=== PATIENT | male | born 1935 | race Caucasian/White ===

== ENCOUNTER 2019-11-07 16:15 | Emergency (ER) | payer OTHER, SELFPAY ==
[2019-11-07 16:31] VITALS: BP 154/79; PULSE 99; RESP 16; TEMP 37.2; O2SAT 98
--- NOTE | 2019-11-07 16:33 | ED.SKABFB ---
HPI - Skin/Abscess/Foreign Bdy General Chief complaint: Skin/Abscess/Foreign Body Stated complaint: right 2nd toe wouund Time Seen by Provider: 11/07/19 16:33 Source: patient Mode of arrival: ambulatory Limitations: no limitations History of Present Illness HPI narrative: Andrea Yuan is an 84 yo male with a PMH of high cholesterol, HTN, depression, who comes here with swelling of R 2nd toe Related Data Home Medications Medication Instructions Recorded Confirmed multivitamin 1 tablet PO DAILY 06/25/19 11/07/19 cholecalciferol (vitamin D3) 25 1,000 unit PO DAILY 06/30/19 11/07/19 mcg (1,000 unit) capsule lisinopril 10 1 tablet PO DAILY 06/30/19 11/07/19 mg-hydrochlorothiazide 12.5 mg tablet aspirin 81 mg PO DAILY 11/07/19 11/07/19 atorvastatin 40 mg PO HS 11/07/19 11/07/19 finasteride [Proscar] 5 mg PO HS 11/07/19 11/07/19 Allergies Allergy/AdvReac Type Severity Reaction Status Date / Time No Known Allergies Allergy Unverified 06/25/19 09:37 Review of Systems Review of Systems: Narrative: CONSTITUTIONAL: Denies fever, chills, sweats. EYES: Denies visual changes, redness, discharge. ENT: Denies rhinorrhea, congestion, sore throat, otalgia. CARDIOVASCULAR: Denies chest pain, palpitations, edema. RESPIRATORY: Denies dyspnea, wheezing, cough GASTROINTESTINAL: Denies abdominal pain, nausea, vomiting, diarrhea. GENITOURINARY: Denies dysuria, hematuria, abnormal discharge SKIN: Denies rash or itching. Right second toe redness and swelling NEUROLOGIC: Denies numbness, or focal weakness. PSYCHIATRIC: Denies anxiety or depression. [facility] Past Medical History Medical History BPH (benign prostatic hyperplasia) CAD (coronary artery disease) Cerebrovascular disease Completed stroke Osteoarthritis, shoulder Vitamin D deficiency Surgical History Surgical History H/O hemorrhoidectomy History of appendectomy History of blepharoplasty 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 Family History Family History (Updated 11/07/19 @ 16:40 by Rosario Reynolds CNP) Other No active medical problems Social History Social History Smoking status: Never smoker Alcohol intake: current Comments At time of signature, I agree with nursing past medical, surgical, social and family history. There is no relevant family history pertinent to the presenting complaint. Exam Narrative: Exam Narrative: GENERAL: This is a well-nourished, well-developed patient, in mild distress. HEAD: normocephalic, atraumatic. EYES: PERRL. Sclera clear/white. Vision is grossly intact. EARS: External ears normal, Hearing grossly intact. NOSE: External nose normal without nasal discharge, nares without redness, no rhinorrhea. THROAT: Mucous membranes moist, NECK: Neck supple, non-tender CARDIOVASCULAR: Regular rate and rhythm without murmurs, gallops, or rubs. RESPIRATORY: Clear to auscultation. Breath sounds equal bilaterally. No wheezes, rales, or rhonchi. GASTROINTESTINAL: Abdomen soft, non-tender, SKIN: warm, intact with no suspicious lesions or rash, good texture and turgor.R second toe erythema, no pain with movement but soft tissue is edematous NEURO: awake, alert, and oriented to person, place and time. There were no obvious focal neurologic abnormalities. Steady gait EXTREMITIES: Normal range of motion. BACK: Nontender without deformity Course Course Emergency Course: started on keflex- follow up with pcp Vital Signs Vital signs: Vital Signs Temperature 99.0 F 11/07/19 16:31 Pulse Rate 99 11/07/19 16:31 Respiratory Rate 16 11/07/19 16:31 Blood Pressure 154/79 H 11/07/19 16:31 Pulse Oximetry 98 11/07/19 16:31 Temperature 99.0 F 11/07/19 16:31 Pulse Rate 99
== END 2019-11-07 16:58 | disposition home or self-care (01) ==
PROVIDERS: Emergency Provider Nurse Practitioner; PCP Internal Medicine
DX: M79.674 Pain in right toe(s) (principal); N40.0 Benign prostatic hyperplasia without lower urinary tract symptoms; I25.10 Atherosclerotic heart disease of native coronary artery without angina pectoris; Z86.73 Personal history of transient ischemic attack (TIA), and cerebral infarction without residual deficits; I10 Essential (primary) hypertension; Z85.820 Personal history of malignant melanoma of skin
CPT/HCPCS: 99213; G0463

== ENCOUNTER 2019-12-28 07:57 | Outpatient (CLI) | payer OTHER, SELFPAY ==
[2019-12-28 08:54] LABS: Alanine Aminotransferase 58 U/L (4-50); Albumin Level 4.3 g/dL (3.5-5.1); Alkaline Phosphatase 110 U/L (38-126); Aspartate Amino Transferase 60 U/L (17-59); Bilirubin,Total 0.8 mg/dL (0.2-1.3); Blood Urea Nitrogen 17 mg/dL (9-20); Calcium 9.2 mg/dL (8.4-10.2); Carbon Dioxide 30 mmol/L (22-30); Chloride 101 mmol/L (98-107); Cholesterol 125 mg/dL (0-200); Estimated Glomerular Filt Rate > 60; Glucose 102 mg/dL (75-110); HDL Direct 35 mg/dL; Potassium 4.2 mmol/L (3.4-5.0); Sodium 137 mmol/L (137-145); Triglycerides 128 mg/dL (<150)
[2019-12-28 09:07] LABS: LDL Cholesterol Direct 69 mg/dL
== END 2019-12-28 07:58 | disposition home or self-care (01) ==
PROVIDERS: PCP Internal Medicine; Visit Provider Nurse Practitioner
DX: E78.5 Hyperlipidemia, unspecified (principal); I10 Essential (primary) hypertension
CPT/HCPCS: 36415; 80053; 80061

== ENCOUNTER 2020-06-27 08:17 | Outpatient (CLI) | payer OTHER, SELFPAY ==
[2020-06-27 08:46] LABS: Alanine Aminotransferase 70 U/L (4-50); Albumin Level 4.2 g/dL (3.5-5.1); Alkaline Phosphatase 104 U/L (38-126); Anion Gap 8 mmol/L (8-16); Aspartate Amino Transferase 68 U/L (17-59); Blood Urea Nitrogen 14 mg/dL (9-20); Calcium 9.5 mg/dL (8.4-10.2); Carbon Dioxide 34 mmol/L (22-30); Chloride 100 mmol/L (98-107); Cholesterol 133 mg/dL (0-200); Estimated Glomerular Filt Rate > 60; Glucose 102 mg/dL (75-110); HDL Direct 37 mg/dL; Potassium 4.1 mmol/L (3.4-5.0); Sodium 142 mmol/L (137-145); Triglycerides 163 mg/dL (<150)
[2020-06-27 08:56] LABS: LDL Cholesterol Direct 64 mg/dL
== END 2020-06-27 08:18 | disposition home or self-care (01) ==
PROVIDERS: PCP Internal Medicine; Visit Provider Internal Medicine
DX: E78.5 Hyperlipidemia, unspecified (principal); Z51.81 Encounter for therapeutic drug level monitoring; Z79.899 Other long term (current) drug therapy; I10 Essential (primary) hypertension
CPT/HCPCS: 36415; 80053; 80061

== ENCOUNTER 2021-01-02 08:10 | Outpatient (CLI) | payer OTHER, SELFPAY ==
[2021-01-02 08:43] LABS: Alanine Aminotransferase 67 U/L (4-50); Albumin Level 4.3 g/dL (3.5-5.1); Alkaline Phosphatase 103 U/L (38-126); Anion Gap 7 mmol/L (8-16); Aspartate Amino Transferase 73 U/L (17-59); Bilirubin,Total 0.8 mg/dL (0.2-1.3); Blood Urea Nitrogen 15 mg/dL (9-20); Calcium 9.3 mg/dL (8.4-10.2); Carbon Dioxide 29 mmol/L (22-30); Chloride 104 mmol/L (98-107); Cholesterol 140 mg/dL (0-200); Estimated Glomerular Filt Rate > 60; Glucose 96 mg/dL (75-110); HDL Direct 35 mg/dL; Sodium 140 mmol/L (137-145); Triglycerides 150 mg/dL (<150)
[2021-01-02 08:55] LABS: LDL Cholesterol Direct 69 mg/dL
[2021-01-02 09:25] LABS: Vitamin D 25 Hydroxy 36.3 ng/mL
== END 2021-01-02 08:11 | disposition home or self-care (01) ==
PROVIDERS: PCP Internal Medicine; Visit Provider Internal Medicine
DX: E55.9 Vitamin D deficiency, unspecified (principal); I10 Essential (primary) hypertension; K75.81 Nonalcoholic steatohepatitis (NASH); E78.5 Hyperlipidemia, unspecified
CPT/HCPCS: 36415; 80053; 80061; 82306

== ENCOUNTER 2021-07-17 08:16 | Outpatient (CLI) | payer OTHER, SELFPAY ==
[2021-07-17 08:44] LABS: Alanine Aminotransferase 71 U/L (4-50); Albumin Level 4.4 g/dL (3.5-5.1); Alkaline Phosphatase 90 U/L (38-126); Anion Gap 7 mmol/L (8-16); Aspartate Amino Transferase 78 U/L (17-59); Bilirubin,Total 0.9 mg/dL (0.2-1.3); Blood Urea Nitrogen 17 mg/dL (9-20); Calcium 9.3 mg/dL (8.4-10.2); Carbon Dioxide 29 mmol/L (22-30); Chloride 100 mmol/L (98-107); Cholesterol 146 mg/dL (0-200); Estimated Glomerular Filt Rate > 60; Glucose 104 mg/dL (65-110); HDL Direct 40 mg/dL; Potassium 3.9 mmol/L (3.4-5.0); Sodium 136 mmol/L (137-145); Triglycerides 123 mg/dL (<150)
[2021-07-17 08:56] LABS: LDL Cholesterol Direct 78 mg/dL
[2021-07-17 09:16] LABS: Vitamin D 25 Hydroxy 42.5 ng/mL
[2021-07-17 11:10] LABS: Prostate Specific Antigen 6.8 ng/mL (< OR = 4.0)
== END 2021-07-17 08:17 | disposition home or self-care (01) ==
PROVIDERS: PCP Internal Medicine; Referring Provider Nurse Practitioner; Visit Provider Internal Medicine
DX: Z12.5 Encounter for screening for malignant neoplasm of prostate (principal); E55.9 Vitamin D deficiency, unspecified; F32.5 Major depressive disorder, single episode, in full remission; E78.49 Other hyperlipidemia
CPT/HCPCS: 36415; 80053; 80061; 82306; 84153; 84443; G0103

== ENCOUNTER 2022-03-20 08:01 | Outpatient (CLI) | payer OTHER, SELFPAY ==
[2022-03-20 08:45] LABS: Alanine Aminotransferase 59 U/L (6-50); Albumin Level 4.4 g/dL (3.5-5.1); Alkaline Phosphatase 96 U/L (38-126); Anion Gap 11 mmol/L (8-16); Aspartate Amino Transferase 78 U/L (17-59); Bilirubin,Total 0.9 mg/dL (0.2-1.3); Blood Urea Nitrogen 18 mg/dL (9-20); Calcium 9.7 mg/dL (8.4-10.2); Carbon Dioxide 27 mmol/L (22-30); Chloride 101 mmol/L (98-107); Cholesterol 159 mg/dL (0-200); Estimated Glomerular Filt Rate > 60; Glucose 104 mg/dL (65-110); HDL Direct 34 mg/dL; Potassium 3.8 mmol/L (3.4-5.0); Sodium 139 mmol/L (137-145); Triglycerides 184 mg/dL (<150)
[2022-03-20 08:56] LABS: LDL Cholesterol Direct 81 mg/dL
[2022-03-20 09:00] LABS: Vitamin D 25 Hydroxy 45.1 ng/mL
== END 2022-03-20 08:02 | disposition home or self-care (01) ==
LOC: ANHLAB 08:03
PROVIDERS: PCP Internal Medicine; Visit Provider Internal Medicine
DX: E55.9 Vitamin D deficiency, unspecified (principal); E78.5 Hyperlipidemia, unspecified; K75.81 Nonalcoholic steatohepatitis (NASH); I10 Essential (primary) hypertension
CPT/HCPCS: 36415; 80053; 80061; 82306

== ENCOUNTER 2022-06-11 08:00 | Outpatient (CLI) | payer OTHER, SELFPAY ==
[2022-06-11 09:24] LABS: Alanine Aminotransferase 69 U/L (6-50); Albumin Level 4.5 g/dL (3.5-5.1); Alkaline Phosphatase 89 U/L (38-126); Anion Gap 10 mmol/L (8-16); Aspartate Amino Transferase 73 U/L (17-59); Bilirubin,Total 0.9 mg/dL (0.2-1.3); Blood Urea Nitrogen 18 mg/dL (9-20); Carbon Dioxide 27 mmol/L (22-30); Chloride 102 mmol/L (98-107); Cholesterol 150 mg/dL (0-200); Estimated Glomerular Filt Rate > 60; Glucose 95 mg/dL (65-110); HDL Direct 36 mg/dL; Potassium 3.9 mmol/L (3.4-5.0); Sodium 139 mmol/L (137-145); Triglycerides 150 mg/dL (<150)
[2022-06-11 09:27] LABS: Hemoglobin A1C 5.6 % (<5.7)
[2022-06-11 09:37] LABS: LDL Cholesterol Direct 76 mg/dL
== END 2022-06-11 08:01 | disposition home or self-care (01) ==
PROVIDERS: PCP Internal Medicine; Visit Provider Nurse Practitioner
DX: E11.9 Type 2 diabetes mellitus without complications (principal); E78.5 Hyperlipidemia, unspecified
CPT/HCPCS: 36415; 80053; 80061; 83036

== ENCOUNTER 2022-12-31 08:17 | Outpatient (CLI) | payer OTHER, SELFPAY ==
[2022-12-31 08:41] LABS: Hematocrit 44.6 % (42.0-52.0); Hemoglobin 14.8 g/dL (14.0-18.0); Mean Corpuscular HGB Conc 33.2 g/dl (32-36); Mean Corpuscular Hemoglobin 29.4 pg (26-34); Mean Corpuscular Volume 88.7 fl (80-100); Mean Platelet Volume 9.5 fl (7.4-10.4); Platelet Count Result 230 k/mm3 (150-375); Red Blood Count 5.03 M/mm3 (4.6-6.20); Red Cell Distribution Width 13.5 % (11.5-14.5); White Blood Count 8.1 K/mm3 (4.5-10.0)
[2022-12-31 08:55] LABS: Alanine Aminotransferase 71 U/L (6-50); Albumin Level 4.4 g/dL (3.5-5.1); Alkaline Phosphatase 89 U/L (38-126); Anion Gap 6 mmol/L (8-16); Aspartate Amino Transferase 85 U/L (17-59); Bilirubin,Total 0.8 mg/dL (0.2-1.3); Blood Urea Nitrogen 19 mg/dL (9-20); Calcium 9.2 mg/dL (8.4-10.2); Carbon Dioxide 30 mmol/L (22-30); Chloride 103 mmol/L (98-107); Estimated Glomerular Filt Rate > 60; Glucose 98 mg/dL (65-110); Potassium 4.1 mmol/L (3.4-5.0); Sodium 139 mmol/L (137-145)
== END 2022-12-31 08:18 | disposition home or self-care (01) ==
PROVIDERS: PCP Family Medicine; Visit Provider Internal Medicine
DX: F01.50 Vascular dementia, unspecified severity, without behavioral disturbance, psychotic disturbance, mood disturbance, and anxiety (principal); I10 Essential (primary) hypertension
CPT/HCPCS: 36415; 80053; 84443; 85027

== ENCOUNTER 2023-02-10 16:02 | Emergency (ER) | payer OTHER, SELFPAY ==
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
[2023-02-10 16:34] VITALS: BP 128/73; PULSE 94; RESP 18; TEMP 36.8; O2SAT 95
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
== END 2023-02-10 19:14 | disposition home or self-care (01) ==
PROVIDERS: Emergency Provider Physician Assistant; PCP Family Medicine
DX: S13.4XXA Sprain of ligaments of cervical spine, initial encounter (principal); S16.1XXA Strain of muscle, fascia and tendon at neck level, initial encounter; F01.50 Vascular dementia, unspecified severity, without behavioral disturbance, psychotic disturbance, mood disturbance, and anxiety; I25.10 Atherosclerotic heart disease of native coronary artery without angina pectoris; E78.5 Hyperlipidemia, unspecified; I10 Essential (primary) hypertension; K75.81 Nonalcoholic steatohepatitis (NASH); N40.0 Benign prostatic hyperplasia without lower urinary tract symptoms; E55.9 Vitamin D deficiency, unspecified; M19.019 Primary osteoarthritis, unspecified shoulder; G47.33 Obstructive sleep apnea (adult) (pediatric); Z86.73 Personal history of transient ischemic attack (TIA), and cerebral infarction without residual deficits; Z96.649 Presence of unspecified artificial hip joint; Z85.828 Personal history of other malignant neoplasm of skin; Z79.82 Long term (current) use of aspirin; Z87.891 Personal history of nicotine dependence; V49.50XA Passenger injured in collision with unspecified motor vehicles in traffic accident, initial encounter
CPT/HCPCS: 70450; 72125; 99284

== ENCOUNTER 2023-04-16 08:10 | Outpatient (CLI) | payer OTHER, SELFPAY ==
[2023-04-16 09:18] LABS: Hemoglobin A1C 5.4 % (<5.7)
== END 2023-04-16 08:11 | disposition home or self-care (01) ==
PROVIDERS: PCP Nurse Practitioner Family; Visit Provider Family Medicine
DX: Z79.899 Other long term (current) drug therapy (principal)
CPT/HCPCS: 36415; 83036

== ENCOUNTER 2023-04-29 16:01 | Outpatient (CLI) | payer OTHER, SELFPAY ==
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
== END 2023-04-29 16:02 | disposition home or self-care (01) ==
PROVIDERS: PCP Family Medicine; Visit Provider Family Medicine
DX: M19.012 Primary osteoarthritis, left shoulder (principal); M24.111 Other articular cartilage disorders, right shoulder
CPT/HCPCS: 73030

== ENCOUNTER 2023-06-16 10:45 | Outpatient (RCR) | payer OTHER, SELFPAY ==
--- NOTE | 2023-05-19 12:06 | OPREHPOC ---
Outpatient Therapy Plan of Care This is a Multidisciplinary Plan of Care that may contain components documented by all disciplines (PT, OT, and ST.) PT Problem 1 PT Problem #1 Knowledge Deficit PT Goal 1 Goal Independent with shoulder ROM program Target Visit 4 PT Problem 2 PT Problem #2 Pain PT Goal 1 Goal Report no increased pain with dressing to improve self care Target Visit 8 PT Problem 3 PT Problem #3 Impaired Functional Mobil PT Goal 1 Goal Demonstrate ability to reach to 145 degrees with R shoulder for functional reach in kitchen Target Visit 8 PT Goal 2 Goal Demonstrate 80 degrees of R shoulder external rotation motion to improve dressing and self care Target Visit 8 PT Problem 4 PT Problem #4 Impaired Strength PT Goal 1 Goal Improve R shoulder external rotation strength to 4 /5 to improve stability and self care Target Visit 8
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
--- NOTE | 2023-06-16 11:22 | OPREHPOC ---
Outpatient Therapy Plan of Care This is a Multidisciplinary Plan of Care that may contain components documented by all disciplines (PT, OT, and ST.) PT Problem 1 PT Problem #1 Knowledge Deficit PT Goal 1 Goal Independent with shoulder ROM program Target Visit 4 Progress Met PT Problem 2 PT Problem #2 Pain PT Goal 1 Goal Report no increased pain with dressing to improve self care Target Visit 8 Progress Met PT Problem 3 PT Problem #3 Impaired Functional Mobil PT Goal 1 Goal Demonstrate ability to reach to 145 degrees with R shoulder for functional reach in kitchen Target Visit 8 Progress Met PT Goal 2 Goal Demonstrate 80 degrees of R shoulder external rotation motion to improve dressing and self care Target Visit 8 Progress Partially Met PT Problem 4 PT Problem #4 Impaired Strength PT Goal 1 Goal Improve R shoulder external rotation strength to 4 /5 to improve stability and self care Target Visit 8 Progress Not Met
== END 2023-06-16 11:46 | disposition home or self-care (01) ==
LOC: ANHPT 10:45
PROVIDERS: PCP Family Medicine; Visit Provider Family Medicine
DX: M25.511 Pain in right shoulder (principal); V89.2XXA Person injured in unspecified motor-vehicle accident, traffic, initial encounter
CPT/HCPCS: 97110; 97140; 97161; 97530

== ENCOUNTER 2023-09-30 09:11 | Outpatient (CLI) | payer OTHER, SELFPAY ==
[2023-09-30 09:36] LABS: Hemoglobin 15.6 g/dL (14.0-18.0); Mean Corpuscular HGB Conc 33.2 g/dl (32-36); Mean Corpuscular Hemoglobin 29.7 pg (26-34); Mean Corpuscular Volume 89.5 fl (80-100); Mean Platelet Volume 9.5 fl (7.4-10.4); Platelet Count Result 236 k/mm3 (150-375); Red Blood Count 5.25 M/mm3 (4.6-6.20); Red Cell Distribution Width 13.4 % (11.5-14.5); White Blood Count 8.1 K/mm3 (4.5-10.0)
[2023-09-30 09:48] LABS: Alanine Aminotransferase 61 U/L (6-50); Albumin Level 4.4 g/dL (3.5-5.1); Alkaline Phosphatase 99 U/L (38-126); Anion Gap 7 mmol/L (8-16); Aspartate Amino Transferase 70 U/L (17-59); Bilirubin,Total 0.9 mg/dL (0.2-1.3); Blood Urea Nitrogen 19 mg/dL (9-20); Calcium 9.7 mg/dL (8.4-10.2); Carbon Dioxide 30 mmol/L (22-30); Chloride 103 mmol/L (98-107); Cholesterol 154 mg/dL (0-200); Estimated Glomerular Filt Rate > 60; Glucose 98 mg/dL (65-110); HDL Direct 38 mg/dL; Potassium 4.1 mmol/L (3.4-5.0); Sodium 140 mmol/L (137-145); Triglycerides 199 mg/dL (<150)
[2023-09-30 09:59] LABS: LDL Cholesterol Direct 88 mg/dL
== END 2023-09-30 09:12 | disposition home or self-care (01) ==
LOC: ANHLAB 09:17
PROVIDERS: PCP Family Medicine; Visit Provider Family Medicine
DX: I25.10 Atherosclerotic heart disease of native coronary artery without angina pectoris (principal); I10 Essential (primary) hypertension; F32.9 Major depressive disorder, single episode, unspecified; G47.30 Sleep apnea, unspecified; E66.9 Obesity, unspecified
CPT/HCPCS: 36415; 80053; 80061; 85027

== ENCOUNTER 2023-12-18 16:10 | Outpatient (CLI) | payer OTHER, SELFPAY ==
--- NOTE | ~2023-12-18 | MR_ITS ---
EXAMINATION: MR shoulder RT wo con DATE: 12/18/2023 17:19 INDICATION: Right shoulder pain. TECHNIQUE: Magnetic resonance imaging (MRI) of the right shoulder was performed without intravenous c ontrast. Sequences included axial PD-weighted FS FSE, coronal oblique PD-weighted FS FSE and T2-weigh ava FS FSE, and sagittal oblique T2-weighted FS FSE and T1-weighted FSE. COMPARISON: Right shoulder radiographs 04/25/2023 FINDINGS: Coracoacromial arch: The acromion undersurface is curved in morphology (type II). There is severe acromioclavicular joint osteoarthritis. There is moderate subacromial/subdeltoid bursitis. Rotator cuff: There is a full-thickness tear of supraspinatus and infraspinatus tendons measuring 4.5 cm anterior t o posterior by 4.5 cm anterior to posterior. There is remodeling of the undersurface of acromion, con sistent with cuff arthropathy. Teres minor tendon is normal. There is mild subscapularis tendinopathy . There is volume loss and severe fatty atrophy of supraspinatus and infraspinatus muscle bellies. Biceps tendon and glenoid labrum: Biceps tendon is in bicipital groove. There is mild intra-articular biceps tendinopathy. There is deg enerative tearing of the glenoid labrum. Fluid: There is a small glenohumeral joint effusion. Bones/cartilage: There is partial-thickness cartilage loss of glenoid and humeral head. IMPRESSION: 1. 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 2. Mild glenohumeral joint chondrosis. 3. Mild intra-articular biceps tendinopathy. 4. Severe acromioclavicular joint osteoarthritis. 5. Moderate subacromial/subdeltoid bursitis and small glenohumeral joint effusion. Reviewed, dictated and finalized at location A. IMPRESSION: 1. 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 2. Mild glenohumeral joint chondrosis. 3. Mild intra-articular biceps tendinopathy. 4. Severe acromioclavicular joint osteoarthritis. 5. Moderate subacromial/subdeltoid bursitis and small glenohumeral joint effusi on.
== END 2023-12-18 16:11 | disposition home or self-care (01) ==
LOC: ANHIMG 16:11
PROVIDERS: PCP Family Medicine; Visit Provider Family Medicine
DX: M75.121 Complete rotator cuff tear or rupture of right shoulder, not specified as traumatic (principal); M75.00 Adhesive capsulitis of unspecified shoulder; M25.511 Pain in right shoulder; M94.211 Chondromalacia, right shoulder; M19.011 Primary osteoarthritis, right shoulder; M75.51 Bursitis of right shoulder; M25.411 Effusion, right shoulder
CPT/HCPCS: 73221

== ENCOUNTER 2023-12-24 07:18 | Outpatient (CLI) | payer OTHER, SELFPAY ==
--- NOTE | ~2023-12-24 | US_ITS ---
US abdomen limited INDICATION: Nonalcoholic steatohepatitis PROCEDURE: Realtime right upper abdominal ultrasound. COMPARISON: 05/24/2015 FINDINGS: The pancreas is normal without focal mass or pancreatic ductal dilation. Liver echotexture is increased, consistent with fatty infiltration. There is normal directional flow in the portal ve in. The gallbladder is normal without stones, gallbladder wall thickening or pericholecystic fluid. Comm on bile duct measures 2.5 mm. No sonographic Eller's sign. IMPRESSION: 1: Fatty infiltration of the liver. Reviewed, dictated and finalized at location B.
== END 2023-12-24 07:19 | disposition home or self-care (01) ==
PROVIDERS: PCP Family Medicine; Visit Provider Family Medicine
DX: K75.81 Nonalcoholic steatohepatitis (NASH) (principal)
CPT/HCPCS: 76705

== ENCOUNTER 2024-09-09 16:15 | Emergency (ER) | payer OTHER, SELFPAY ==
--- NOTE | 2024-09-09 16:18 | ED.GENADULT ---
HPI - General Adult General Chief complaint: Back Pain/Injury Stated complaint: Right Side Flank Pain Time Seen by Provider: 09/09/24 16:36 Source: patient, RN notes reviewed and old records reviewed Mode of arrival: ambulatory Limitations: no limitations History of Present Illness HPI narrative: 89-year-old male presents to the [facility] with right lower back pain for a couple of weeks. Told his yesterday. States that Tylenol makes it better. Onset (ago): week(s) Related Data Home Medications ?Medication ?Instructions ?Recorded ?Confirmed ?Last Taken ?Type multivitamin 1 tablet PO DAILY 06/25/19 09/09/24 Unknown History cholecalciferol (vitamin D3) 25 1,000 unit PO DAILY 06/30/19 09/09/24 Unknown History mcg (1,000 unit) capsule (Vitamin D3) Lactobacillus acidophilus 250 100 mmu cells PO DAILY 01/02/21 09/09/24 Unknown History million cell capsule Allergies Allergy/AdvReac Type Severity Reaction Status Date / Time No Known Allergies Allergy Verified 09/09/24 16:18 Review of Systems Review of Systems: All systems reviewed & are unremarkable except as noted in HPI and below Constitutional: Constitutional: Reports no additional constitutional complaints ENT: Reports system reviewed and no additional complaints, except as documented Cardiovascular: Cardiovascular: Reports no additional cardiovascular complaints, Denies chest pain and Denies dyspnea Respiratory: Respiratory: Reports no additional respiratory complaints, Denies chest congestion, Denies cough and Denies dyspnea Musculoskeletal: Musculoskeletal: Reports as per HPI and Reports back pain (Right lower) Integumentary/Breasts: Skin/Breast: Reports system reviewed and no additional complaints, except as docu PMFSH Past Medical History Medical History Vascular dementia RBBB BPH (benign prostatic hyperplasia) Completed stroke Depression HAYLEY (obstructive sleep apnea) Cerebrovascular disease SR (nonalcoholic steatohepatitis) Vitamin D deficiency Hyperlipidemia Hypertension CAD (coronary artery disease) Adhesive capsulitis Osteoarthritis, shoulder Surgical History Surgical History History of appendectomy 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 History of blepharoplasty H/O hemorrhoidectomy Family History Family History Sibling Patient's sister is in good health Father Acute myocardial infarction, Onset Age: 91 Patient's father is Family history of cardiovascular disease, Onset Age: 91 Mother Family history of respiratory disorder, Onset Age: 90 Other No active medical problems Social History Social History Social History: Smoking status: Former smoker Tobacco type: cigarettes Second hand tobacco smoke exposure: Yes Alcohol intake: never Alcohol use details: Denies alcohol use Substance use: never Substance use type: does not use Lack of Transportation: No Lack of Food: Never True Current Housing: I Do Not Have Housing Concerned About Future Housing: No Difficulty Paying Gas/Electric Bills: No Difficulty Paying for Meds: No Currently Unemployed: No Education: Grade School Difficulty w/ Childcare or Family Care: No Living arrangements: with family Occupation/Education: retired Gender identity (if verbalized by the patient): Male Sexual Orientation (if Verbalized by the Patient): Straight or Heterosexual Comments At the time of my signature, I reviewed and agree with the nursing past medical, surgical, social, and family history. There is no relevant family history pertinent to the patient complaint. Exam Const: General: cooperative, healthy appearing, comfortable, no acute distress, well developed, alert and well nourished Nutritional Appearance: well nourished and obese Orientation/consciousness: patient oriented x3 Limitations: no limitations HENMT: Head: normal to inspection Eyes: General: appearance normal, both eyes and all related structures Alignment and Position: alignment normal Neck: Neck: normal visual inspection, full ROM, no lymphadenopathy and no meningeal signs Chest: Chest palpation & inspection: normal inspection of the chest Resp: Effort & Inspection: normal respiratory effort and able to speak in complete sentences Auscultation: clear to auscultation bilaterally, no crackles, no rales, no rhonchi and no wheezes Cardio: Rate: regular rate GI: GI Palp: No abdominal tenderness Back/Spine/Pelvis: Back: no CVA tenderness Cervical Spine: normal cervical lordosis Thoracic/Lumbar Spine: No thoracic spinal tenderness and No lumbar spinal tenderness Back/spine/pelvis image:  1. Pain with movement, palpation. No rashes. No midline tenderness. No loss retention of bowel or bladder. No saddle anesthesia. No numbness and tingling in extremities. Walks with a cane. Skin: General skin exam: normal color and no rashes or lesions noted Neuro: General: patient oriented x3, gait normal, moves all extremities and no meningeal signs Cognition (Neuro): normal cognition Speech: normal speech Gait exam (Neuro): Normal gait present Extrem: General: normal to inspection, full ROM, capillary refill normal and normal gait Psych: Appearance: grossly normal and well kempt Mental Status: mental status grossly normal Speech and movement: Normal speech and movement present and Clear speech present Affect: normal affect Attitude: cooperative Course Course Level of Care: Express Care Visit Vital Signs Vital signs: Vital Signs Temperature 97.1 F L 09/09/24 16:27 Pulse Rate 63 09/09/24 16:27 Respiratory Rate 16 09/09/24 16:27 Blood Pressure 123/58 L 09/09/24 16:27 Pulse Oximetry 95 09/09/24 16:27 Oxygen Delivery Room Air 09/09/24 16:27 Temperature 97.1 F L 09/09/24 16:27 Pulse Rate 63 09/09/24 16:27 Respiratory Rate 16 09/09/24 16:27 Blood Pressure 123/58 L 09/09/24 16:27 Pulse Oximetry 95 09/09/24 16:27 Oxygen Delivery Room Air 09/09/24 16:27 Reviewed Medical Decision Making MDM Narrative Medical decision making narrative: Patient sitting comfortably in exam room. Nontoxic, vitals stable. Patient in no acute distress Patient presents for right lower back pain. Patient states has been going on for several weeks. Denies any other symptoms. Denies nausea vomiting fevers. Denies urinary symptoms. Denies any numbness or tingling in extremities. No midline tenderness. No rashes were noted. Patient is appropriate for outpatient treatment most likely muscular. Encourage patient to follow-up with primary care provider. Also discussed signs and symptoms patient and his for further evaluation and signs and symptoms for proceed to the emergency room with both verbalized understanding Discharge instructions reviewed with patient, as well as provided in writing per nursing staff. The instructions also include specific and strict return/GO TO THE ER as well as f/u information. All questions have been answered, and the patient deny any further questions with discharge and discharge plan. Some parts of this dictation were generated by voice recognition software and may contain typographical and/or grammatical inaccuracies. Differential Diagnosis Differential Diagnosis: Lumbar, kidney stone, muscle strain Medical Records Medical records reviewed: Yes I reviewed the external patient's medical records. Vital Signs Vital Signs: Vital Signs Temperature 97.1 F L 09/09/24 16:27 Pulse Rate 63 09/09/24 16:27 Respiratory Rate 16 09/09/24 16:27 Blood Pressure 123/58 L 09/09/24 16:27 Pulse Oximetry 95 09/09/24 16:27 Oxygen Delivery Room Air 09/09/24 16:27 Temperature 97.1 F L 09/09/24 16:27 Pulse Rate 63 09/09/24 16:27 Respiratory Rate 16 09/09/24 16:27 Blood Pressure 123/58 L 09/09/24 16:27 Pulse Oximetry 95 09/09/24 16:27 Oxygen Delivery Room Air 09/09/24 16:27 Reviewed Lab Data Lab results reviewed: Yes I reviewed the patient's lab results. Labs: Reviewed Critical Care Time Critical Care Time Critical Care Time: No Discharge Plan Discharge Clinical Impression: Right lumbar pain Patient Disposition: Home, Self-Care Condition: Stable Instructions: Antibiotic Form, Acute Low Back Pain (ED) Additional Instructions: Take Tylenol as needed to help with pain Take Baclofen (muscle relaxer) as directed. Do not drink, drive, operate machinery, or do anything dangerous while taking this medication Exercise:Combine aerobic exercise, like walking or swimming, with specific exercises to keep the muscles in your back and abdomen strong and flexible. Proper Lifting:Be sure to lift heavy items with your legs, not your back. Do not bend over to pick something up. Keep your back straight and bend at your knees. Weight:Maintain a healthy weight. Being overweight puts added stress on your lower back. Avoid Smoking:Both the smoke and the nicotine cause your spine to age faster than normal. Proper Posture:Good posture is important for avoiding future problems. A therapist can teach you how to safely stand, sit, and lift. Use warm moist heat to help with pain. Using topical such as Biofreeze, Albino-Johnson or Aspercreme can also help Follow up with Primary provider in 2-3 days, This may become a chronic condition and they will be the one to help manage your pain and order additional testing. go directly to the emergency room for new or worsening symptoms. Patient Language: German Prescriptions: New baclofen 10 mg tablet See Rx Instructions .Route .COMPLEX PRN (Reason: muscle pain) Qty: 7 0RF Rx Instructions: 0.5-1 tab bid prn pain No Action multivitamin Tablet 1 tablet PO DAILY cholecalciferol (vitamin D3) [Vitamin D3] 25 mcg (1,000 unit) capsule 1,000 unit PO DAILY Lactobacillus acidophilus 1.5 mg (250 million cell) capsule 100 mmu cells PO DAILY simvastatin 40 mg tablet See Rx Instructions .ROUTE .COMPLEX Qty: 90 1RF Dose Instruction: TAKE 1 TABLET BY MOUTH EVERY DAY Rx Instructions: TAKE 1 TABLET BY MOUTH EVERY DAY finasteride 5 mg tablet See Rx Instructions .ROUTE .COMPLEX Qty: 90 1RF Dose Instruction: TAKE 1 TABLET BY MOUTH EVERY DAY Rx Instructions: TAKE 1 TABLET BY MOUTH EVERY DAY sertraline 50 mg tablet See Rx Instructions .ROUTE .COMPLEX Qty: 90 1RF Dose Instruction: TAKE 1 TABLET BY MOUTH EVERY DAY Rx Instructions: TAKE 1 TABLET BY MOUTH EVERY DAY lisinopril-hydrochlorothiazide 10-12.5 mg tablet See Rx Instructions .ROUTE .COMPLEX Qty: 90 1RF Dose Instruction: TAKE 1 TABLET BY MOUTH EVERY DAY Rx Instructions: TAKE 1 TABLET BY MOUTH EVERY DAY Follow-up/Referrals: Jeremiah Price MD [Primary Care Provider] - 3 Days ([facility] care follow up ) Time of Disposition: 16:48
[2024-09-09 16:27] VITALS: BP 123/58; PULSE 63; RESP 16; TEMP 36.2; O2SAT 95
== END 2024-09-09 17:00 | disposition home or self-care (01) ==
PROVIDERS: Emergency Provider Nurse Practitioner; PCP Family Medicine
DX: M54.50 Low back pain, unspecified (principal); Z87.891 Personal history of nicotine dependence; N40.0 Benign prostatic hyperplasia without lower urinary tract symptoms; K75.81 Nonalcoholic steatohepatitis (NASH); I10 Essential (primary) hypertension; E78.5 Hyperlipidemia, unspecified; I25.10 Atherosclerotic heart disease of native coronary artery without angina pectoris; F01.50 Vascular dementia, unspecified severity, without behavioral disturbance, psychotic disturbance, mood disturbance, and anxiety; Z85.828 Personal history of other malignant neoplasm of skin
CPT/HCPCS: 99213; G0463

== ENCOUNTER 2024-12-01 08:09 | Outpatient (CLI) | payer OTHER, SELFPAY ==
[2024-12-01 08:42] LABS: Basophils Absolute Auto 0.1 K/mm3 (0.0-0.1); Basophils Percent Auto 0.9 % (0.2-1.2); Eosinophils Absolute Auto 0.2 K/mm3 (0-0.3); Eosinophils Percent Auto 2.9 % (0-4.4); Hematocrit 43.8 % (42.0-52.0); Hemoglobin 14.7 g/dL (14.0-18.0); Immature Granulocyte Absolute 0.03 K/mm3 (0.00-0.031); Immature Granulocyte Percent A 0.4 % (0-0.5); Lymphocytes Absolute Auto 2.09 K/mm3 (0.9-3.2); Lymphocytes Percent Auto 27.9 % (18.3-44.2); Mean Corpuscular HGB Conc 33.6 g/dl (32-36); Mean Corpuscular Hemoglobin 29.8 pg (26-34); Mean Corpuscular Volume 88.7 fl (80-100); Mean Platelet Volume 10.1 fl (7.4-10.4); Monocytes Absolute Auto 0.8 K/mm3 (0.1-0.6); Monocytes Percent Auto 10.3 % (2.6-8.5); Neutrophils Absolute Auto 4.3 K/mm3 (1.3-6.7); Neutrophils Percent Auto 57.6 % (45.5-73.1); Platelet Count Result 220 k/mm3 (150-375); Red Blood Count 4.94 M/mm3 (4.6-6.20); Red Cell Distribution Width 13.8 % (11.5-14.5); White Blood Count 7.5 K/mm3 (4.5-10.0)
--- OUTSIDE RECORDS SUMMARY | 2024-12-01 08:52 | XMS_ITS | Clinical Summary ---
Author Organization [facility] [address] Address [address] [place] [id number] Care Team Providers Care Indoor Sports Centre Manager Name Role Phone Jeremiah Price MD Primary Care Provider [phone] Allergies No known active allergies Medications finasteride (PROSCAR) 5 mg tablet Take 1 tablet (5 mg total) by mouth daily 08/19/2023 Active lisinopril-hydro CHLOROthiazide (ZESTORETIC) 10-12.5 mg per tablet Take 1 tablet by mouth daily 07/28/2023 Active sertraline (ZOLOFT) 50 mg tablet Take 1 tablet (50 mg total) by mouth daily 07/28/2023 Active simvastatin (ZOCOR) 40 mg tablet Take 1 tablet (40 mg total) by mouth daily 06/30/2023 Active Active Problems No known active problems Social History Tobacco Use Types Packs/Day Years Used Date Smoking Tobacco: Former Cigars Alcohol Use Standard Drinks/Week Comments No 0 (1 standard drink = 0.6 oz pur e alcohol) Sex and Gender Information Value Date Recorded Sex Assigned at Not on file 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 Gender Identity Not on file Sexual Orientation Not on file Obstetrics History Last Filed Vital Signs Vital Sign Reading Time Taken Comments Blood Pressure 125/76 09/26/2023 10:20 AM CDT Pulse 55 09/26/2023 10:20 AM CDT Temperature - - Respiratory Rate - - Oxygen Saturation - - Inhaled Oxygen Concentration - - Weight 84.4 kg (186 lb 1.6 oz) 09/26/2023 10:20 AM CDT Height 165.1 cm (5' 5 ) 09/26/2023 10:20 AM CDT Body Mass Index 30.97 09/26/2023 10:20 AM CDT Plan of Treatment Health Maintenance Due Date Last Done Comments Depression Screening 1936 Fall Risk Assessment 1936 DTaP/Tdap/Td Vaccine (1 - Tdap) 1947 Hepatitis B Screening 1954 Pneumococcal vaccine 65+ (1 of 1 - PCV) 1986 Zoster Vaccine (1 of 2) 1986 Well Visit 65+ 2001 Influenza Vaccine (#1) 2024 Insurance Care Teams Indoor Sports Centre Manager Relationship Specialty Start Date End Date Jeremiah Price MD PCP - General Family Practice 09/26/23
--- OUTSIDE RECORDS SUMMARY | 2024-12-01 08:52 | XMS_ITS | Referral Summary ---
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
--- OUTSIDE RECORDS SUMMARY | 2024-12-01 08:53 | XMS_ITS | Continuity of Care Document ---
Author Organization [facility] Address [address] [place] [address] Phone Care Team Providers Care Mems Process Engineer Name Role Phone Oralia Ruiz Unavailable Unavailable Advance Directives Directive Yes / No Effective Date File Name No Information Encounters Encounter Description Practice Location Reason(s) For Visit Diagnoses Date Provider Providers Copied on Encounter [facility], [address], [place], [place], [id number], [place] tel:[phone] [facility] No Information [address] , [address], [place], [address], [place]. tel:[phone] Referring Provider: Ervin Pereira MD B, [address], [place], [address]. tel:[phone] Family History Family Member Type Diagnosis Age At Onset No Information Payers Payer name Insurance type Covered constitution party ID Authoriza tion(s) Medicare [facility] [id number] Social History Type Description Quantity Date Captured [...]
[2024-12-01 10:07] LABS: Vitamin D 25 Hydroxy 44.6 ng/mL
[2024-12-01 11:37] LABS: Alanine Aminotransferase 36 U/L (6-50); Albumin Level 4.4 g/dL (3.5-5.1); Alkaline Phosphatase 88 U/L (38-126); Anion Gap 6 mmol/L (4-12); Aspartate Amino Transferase 58 U/L (17-59); Blood Urea Nitrogen 19 mg/dL (9-20); Calcium 9.1 mg/dL (8.4-10.2); Carbon Dioxide 28 mmol/L (22-30); Chloride 104 mmol/L (98-107); Cholesterol 146 mg/dL (0-200); Estimated Glomerular Filt Rate > 60; Glucose 94 mg/dL (65-110); HDL Direct 43 mg/dL; Magnesium 2.1 mg/dL (1.6-2.3); Potassium 4.2 mmol/L (3.4-5.0); Sodium 138 mmol/L (137-145); Triglycerides 106 mg/dL (<150)
[2024-12-01 11:49] LABS: LDL Cholesterol Direct 66 mg/dL
== END 2024-12-01 08:10 | disposition home or self-care (01) ==
LOC: ANHLAB 08:10
PROVIDERS: PCP Family Medicine; Visit Provider Family Medicine
DX: E78.49 Other hyperlipidemia (principal); I10 Essential (primary) hypertension; I25.10 Atherosclerotic heart disease of native coronary artery without angina pectoris; E66.9 Obesity, unspecified; E55.9 Vitamin D deficiency, unspecified; K75.81 Nonalcoholic steatohepatitis (NASH); G45.9 Transient cerebral ischemic attack, unspecified; Z79.899 Other long term (current) drug therapy
CPT/HCPCS: 36415; 80053; 80061; 82306; 82607; 83735; 85025

== ENCOUNTER 2024-12-24 14:09 | Emergency (ER) | payer OTHER, SELFPAY ==
[2024-12-24 14:20] VITALS: BP 137/55; PULSE 62; RESP 16; TEMP 36.6; O2SAT 99
--- NOTE | 2024-12-24 14:20 | ED_ITS ---
HPI - General Adult General Chief complaint: Skin/Abscess/Foreign Body Stated complaint: bruising on left arm Time Seen by Provider: 12/24/24 14:20 Source: patient, RN notes reviewed and old records reviewed Mode of arrival: ambulatory Limitations: no limitations History of Present Illness HPI narrative: 81-year-old male presents to the [facility] with a bruise to the left shoulder area, humeral area. Patient was evaluated by primary care provider 3 days ago. Patient denies any injury. Denies any tenderness to palpation. Patient denies any use of blood thinners. Treatments prior to arrival: none Related Data Home Medications ?Medication ?Instructions ?Recorded ?Confirmed ?Last Taken ?Type multivitamin 1 tablet PO DAILY 06/25/19 12/21/24 Unknown History cholecalciferol (vitamin D3) 25 1,000 unit PO DAILY 06/30/19 12/21/24 Unknown History mcg (1,000 unit) capsule (Vitamin D3) Lactobacillus acidophilus 250 100 mmu cells PO DAILY 01/02/21 12/21/24 Unknown History million cell capsule aspirin 81 mg tablet,delayed 81 mg PO DAILY 12/21/24 12/21/24 Unknown History release (Adult Low Dose Aspirin) Allergies Allergy/AdvReac Type Severity Reaction Status Date / Time No Known Allergies Allergy Verified 12/21/24 11:29 Review of Systems Review of Systems: All systems reviewed & are unremarkable except as noted in HPI and below Constitutional: Constitutional: Reports no additional constitutional complaints ENT: Reports system reviewed and no additional complaints, except as documented Cardiovascular: Cardiovascular: Reports no additional cardiovascular complaints, Denies chest pain and Denies dyspnea Respiratory: Respiratory: Reports no additional respiratory complaints, Denies chest congestion, Denies cough and Denies dyspnea Musculoskeletal: Musculoskeletal: Reports no additional musculoskeletal complaints Integumentary/Breasts: Skin/Breast: Reports as per HPI [facility] Past Medical History Medical History Vascular dementia RBBB BPH (benign prostatic hyperplasia) Completed stroke Depression HAYLEY (obstructive sleep apnea) Cerebrovascular disease SR (nonalcoholic steatohepatitis) Vitamin D deficiency Hyperlipidemia Hypertension CAD (coronary artery disease) Adhesive capsulitis Osteoarthritis, shoulder Surgical History Surgical History History of appendectomy 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 History of blepharoplasty H/O hemorrhoidectomy Family History Family History Sibling Patient's sister is in good health Father Acute myocardial infarction, Onset Age: 91 Patient's father is Family history of cardiovascular disease, Onset Age: 91 Mother Family history of respiratory disorder, Onset Age: 90 Other No active medical problems Social History Social History Social History: Smoking status: Former smoker Tobacco type: cigarettes Second hand tobacco smoke exposure: Yes Alcohol intake: never Alcohol use details: Denies alcohol use Substance use: never Substance use type: does not use Lack of Transportation: No Lack of Food: Never True Current Housing: I Do Not Have Housing Concerned About Future Housing: No Difficulty Paying Gas/Electric Bills: No Difficulty Paying for Meds: No Currently Unemployed: No Education: Grade School Difficulty w/ Childcare or Family Care: No Living arrangements: with family Occupation/Education: retired Gender identity (if verbalized by the patient): Male Sexual Orientation (if Verbalized by the Patient): Straight or Heterosexual Comments At the time of my signature, I reviewed and agree with the nursing past medical, surgical, social, and family history. There is no relevant family history pertinent to the patient complaint. Exam Const: General: cooperative, comfortable, no acute distress, well developed, alert and well nourished Nutritional Appearance: well nourished Orientation/consciousness: patient oriented x3 Limitations: no limitations HENMT: Head: normal to inspection Eyes: General: appearance normal, both eyes and all related structures Alignment and Position: alignment normal Neck: Neck: normal visual inspection, full ROM, no lymphadenopathy and no meningeal signs Chest: Chest palpation & inspection: normal inspection of the chest Resp: Effort & Inspection: normal respiratory effort and able to speak in complete sentences Cardio: Rate: regular rate Back/Spine/Pelvis: Back: No back tenderness Skin: General skin exam: normal color and no rashes or lesions noted Other: Bruising, left lateral upper arm different stages of healing. Upper portion yellow, darker on the distal aspect. Total bruise was 15 x 13 some Neuro: General: patient oriented x3, moves all extremities and no meningeal signs Speech: normal speech Gait exam (Neuro): Normal gait present Extrem: General: normal to inspection, full ROM, capillary refill normal and normal gait Left upper extremity: shoulder/upper arm no tenderness and no swelling, elbow/forearm normal ROM; no tenderness, wrist normal to inspection and normal ROM; no tenderness and hand vascular exam radial pulse present and normal capillary refill Psych: Appearance: grossly normal and well kempt Mental Status: mental status grossly normal Speech and movement: Normal speech and movement present and Clear speech present Affect: normal affect Attitude: cooperative Course Course Level of Care: Express Care Visit Vital Signs Vital signs: Vital Signs Temperature 97.9 F 12/24/24 14:20 Pulse Rate 62 12/24/24 14:20 Respiratory Rate 16 12/24/24 14:20 Blood Pressure 137/55 L 12/24/24 14:20 Pulse Oximetry 99 12/24/24 14:20 Oxygen Delivery Room Air 12/24/24 14:20 Temperature 97.9 F 12/24/24 14:20 Pulse Rate 62 12/24/24 14:20 Respiratory Rate 16 12/24/24 14:20 Blood Pressure 137/55 L 12/24/24 14:20 Pulse Oximetry 99 12/24/24 14:20 Oxygen Delivery Room Air 12/24/24 14:20 Reviewed Medical Decision Making MDM Narrative Medical decision making narrative: Patient sitting comfortably in exam room. Nontoxic, vitals stable. Patient in no acute distress Patient presents with concerns for a bruise to the left arm. No acute findings, no injury. Patient appropriate for outpatient treatment with close follow-up Discharge instructions reviewed with patient, as well as provided in writing per nursing staff. The instructions also include specific and strict return/GO TO THE ER as well as f/u information. All questions have been answered, and the patient deny any further questions with discharge and discharge plan. Some parts of this dictation were generated by voice recognition software and may contain typographical and/or grammatical inaccuracies. Differential Diagnosis Differential Diagnosis: Contusion Medical Records Medical records reviewed: Yes I reviewed the external patient's medical records. Vital Signs Vital Signs: Vital Signs Temperature 97.9 F 12/24/24 14:20 Pulse Rate 62 12/24/24 14:20 Respiratory Rate 16 12/24/24 14:20 Blood Pressure 137/55 L 12/24/24 14:20 Pulse Oximetry 99 12/24/24 14:20 Oxygen Delivery Room Air 12/24/24 14:20 Temperature 97.9 F 12/24/24 14:20 Pulse Rate 62 12/24/24 14:20 Respiratory Rate 16 12/24/24 14:20 Blood Pressure 137/55 L 12/24/24 14:20 Pulse Oximetry 99 12/24/24 14:20 Oxygen Delivery Room Air 12/24/24 14:20 Reviewed Lab Data Lab results reviewed: Yes I reviewed the patient's lab results. Labs: Reviewed Critical Care Time Critical Care Time Critical Care Time: No Discharge Plan Discharge Clinical Impression: Contusion Patient Disposition: Home Condition: Stable Instructions: Antibiotic Form, Contusion in Adults (ED), Hematoma (ED) Additional Instructions: Do gentle [id number] exercises. Apply ice as needed. Follow-up with primary care provider For worsening concerns please go directly to the emergency room. Patient Language: Romanian Prescriptions: No Action baclofen 10 mg tablet See Rx Instructions .Route .COMPLEX PRN (Reason: muscle pain) Qty: 7 0RF Rx Instructions: 0.5-1 tab bid prn pain multivitamin Tablet 1 tablet PO DAILY cholecalciferol (vitamin D3) [Vitamin D3] 25 mcg (1,000 unit) capsule 1,000 unit PO DAILY Lactobacillus acidophilus 1.5 mg (250 million cell) capsule 100 mmu cells PO DAILY aspirin [Adult Low Dose Aspirin] 81 mg tablet,delayed release (DR/EC) 81 mg PO DAILY finasteride 5 mg tablet See Rx Instructions .ROUTE .COMPLEX Qty: 90 1RF Dose Instruction: TAKE 1 TABLET BY MOUTH EVERY DAY Rx Instructions: TAKE 1 TABLET BY MOUTH EVERY DAY simvastatin 40 mg tablet See Rx Instructions .ROUTE .COMPLEX Qty: 90 1RF Dose Instruction: TAKE 1 TABLET BY MOUTH EVERY DAY Rx Instructions: TAKE 1 TABLET BY MOUTH EVERY DAY lisinopril-hydrochlorothiazide 10-12.5 mg tablet See Rx Instructions .ROUTE .COMPLEX Qty: 90 1RF Dose Instruction: TAKE 1 TABLET BY MOUTH EVERY DAY Rx Instructions: TAKE 1 TABLET BY MOUTH EVERY DAY sertraline 50 mg tablet See Rx Instructions .ROUTE .COMPLEX Qty: 90 1RF Dose Instruction: TAKE 1 TABLET BY MOUTH EVERY DAY Rx Instructions: TAKE 1 TABLET BY MOUTH EVERY DAY Follow-up/Referrals: Jeremiah Price MD [Primary Care Provider] - 1 Week ([facility] follow-up) Time of Disposition: 14:32
== END 2024-12-24 14:39 | disposition home or self-care (01) ==
PROVIDERS: Emergency Provider Nurse Practitioner; PCP Family Medicine
DX: S40.022D Contusion of left upper arm, subsequent encounter (principal); X58.XXXD Exposure to other specified factors, subsequent encounter; I10 Essential (primary) hypertension; I25.10 Atherosclerotic heart disease of native coronary artery without angina pectoris; E78.5 Hyperlipidemia, unspecified; K75.81 Nonalcoholic steatohepatitis (NASH); N40.0 Benign prostatic hyperplasia without lower urinary tract symptoms; F01.50 Vascular dementia, unspecified severity, without behavioral disturbance, psychotic disturbance, mood disturbance, and anxiety; E55.9 Vitamin D deficiency, unspecified; Z87.891 Personal history of nicotine dependence; Z79.82 Long term (current) use of aspirin
CPT/HCPCS: 99212; G0463

== ENCOUNTER 2024-12-28 10:54 | Emergency (ER) | payer OTHER, SELFPAY ==
--- NOTE | ~2024-12-28 | XR_ITS ---
EXAMINATION: XR humerus LT DATE: 12/28/2024 13:10 INDICATION: Bruising at the left upper arm TECHNIQUE: AP and lateral views of the left humerus were obtained. COMPARISON: None. FINDINGS: Bone alignment is normal. No fracture. Polyarticular osteoarthritis, mild at the left elbow and glenohumeral joints and moderate at the acromioclavicular joint. Small subacromial spur. Soft ti ssues are unremarkable. IMPRESSION: 1. Polyarticular osteoarthritis as detailed above. No acute osseous abnormality. Reviewed, dictated and finalized at location A. IMPRESSION: 1. Polyarticular osteoarthritis as detailed above. No acute osseous abnormality .
--- NOTE | ~2024-12-28 | US_ITS ---
LEFT UPPER EXTREMITY VENOUS ULTRASOUND Ordering provider: Leo Campos MD History: . Y . Comparison: None. FINDINGS: --JUGULAR: Patent and free of thrombus. Normal compressibility, phasic flow and augmentation. --SUBCLAVIAN: Patent and free of thrombus. Normal compressibility, phasic flow and augmentation. --AXILLARY: Patent and free of thrombus. Normal compressibility, phasic flow and augmentation. --BRACHIAL: Patent and free of thrombus. Normal compressibility, phasic flow and augmentation. --CEPHALIC: Patent and free of thrombus. Normal compressibility, phasic flow and augmentation. --BASILIC: Patent and free of thrombus. Normal compressibility, phasic flow and augmentation. --RADIAL: Patent and free of thrombus. Normal compressibility, phasic flow and augmentation. --ULNAR: Patent and free of thrombus. Normal compressibility, phasic flow and augmentation. IMPRESSION: Negative left upper extremity venous US. No deep vein thrombosis. Reviewed, dictated and finalized at location A.
[2024-12-28 11:09] VITALS: BP 150/82; PULSE 67; RESP 17; TEMP 36.5; O2SAT 97
[2024-12-28 11:57] LABS: Basophils Absolute Auto 0.1 K/mm3 (0.0-0.1); Basophils Percent Auto 0.9 % (0.2-1.2); Eosinophils Absolute Auto 0.2 K/mm3 (0-0.3); Eosinophils Percent Auto 2.5 % (0-4.4); Hematocrit 43.1 % (42.0-52.0); Hemoglobin 14.3 g/dL (14.0-18.0); Immature Granulocyte Absolute 0.03 K/mm3 (0.00-0.031); Immature Granulocyte Percent A 0.4 % (0-0.5); Lymphocytes Absolute Auto 1.78 K/mm3 (0.9-3.2); Lymphocytes Percent Auto 23.9 % (18.3-44.2); Mean Corpuscular HGB Conc 33.2 g/dl (32-36); Mean Corpuscular Hemoglobin 29.7 pg (26-34); Mean Corpuscular Volume 89.6 fl (80-100); Mean Platelet Volume 9.5 fl (7.4-10.4); Monocytes Absolute Auto 0.7 K/mm3 (0.1-0.6); Monocytes Percent Auto 9.7 % (2.6-8.5); Neutrophils Absolute Auto 4.7 K/mm3 (1.3-6.7); Neutrophils Percent Auto 62.6 % (45.5-73.1); Platelet Count Result 200 k/mm3 (150-375); Red Blood Count 4.81 M/mm3 (4.6-6.20); Red Cell Distribution Width 13.7 % (11.5-14.5); White Blood Count 7.5 K/mm3 (4.5-10.0)
--- OUTSIDE RECORDS SUMMARY | 2024-12-28 12:01 | XMS_ITS | Clinical Summary ---
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 Gender Identity Not on file Sexual Orientation [...] 10:20 AM CDT Height 165.1 cm (5' 5) 09/26/2023 10:20 AM CDT Body Mass Index 30.97 09/26/2023 10:20 AM CDT Plan of Treatment Health Maintenance Due Date Last Done Comments Depression Screening 1936 Fall Risk Assessment 1936 DTaP/Tdap/Td Vaccine (1 - Tdap) 1947 Hepatitis B Screening 1954 Pneumococcal vaccine 65+ (1 of 1 - PCV) 1986 Zoster Vaccine (1 of 2) 1986 Well Visit 65+ 2001 Influenza Vaccine (Season Ended) 2025 Insurance Care Teams Acidizer Helper Relationship Specialty Start Date End Date Jeremiah Price MD PCP - General Family Practice 09/26/23
--- OUTSIDE RECORDS SUMMARY | 2024-12-28 12:01 | XMS_ITS | Continuity of Care Document ---
Author Organization [facility] Address [address] [place] [address] Phone Care Team Providers Care Ammonium Nitrate Crystallizer Name Role Phone Oralia Ruiz Unavailable Unavailable Advance Directives Directive Yes / No Effective Date File Name No Information Encounters Encounter Description Practice Location Reason(s) For Visit Diagnoses Date Provider Providers Copied on Encounter [facility], [address], [place], [place], [id number], [place] tel:[phone] SEC [facility] No Information [address] , [address], [place], [address], [place]. tel:[phone] Referring Provider: Ervin Pereira MD B, [address], [place], [address]. tel:[phone] Family History Family Member Type Diagnosis Age At Onset No Information Payers Payer name Insurance type Covered constitution party ID Authoriza tion(s) Medicare [facility] [id number] Social History Type Description Quantity Date Captured [...]
--- OUTSIDE RECORDS SUMMARY | 2024-12-28 12:01 | XMS_ITS | Referral Summary ---
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
[2024-12-28 12:05] LABS: Alanine Aminotransferase 29 U/L (6-50); Albumin Level 4.4 g/dL (3.5-5.1); Alkaline Phosphatase 94 U/L (38-126); Anion Gap 8 mmol/L (4-12); Aspartate Amino Transferase 44 U/L (17-59); Bilirubin,Total 0.8 mg/dL (0.2-1.3); Blood Urea Nitrogen 16 mg/dL (9-20); Calcium 9.6 mg/dL (8.4-10.2); Carbon Dioxide 28 mmol/L (22-30); Chloride 103 mmol/L (98-107); Estimated CRCL calculation 43 ml/min; Estimated Glomerular Filt Rate > 60; Glucose 86 mg/dL (65-110); Potassium 4.1 mmol/L (3.4-5.0); Sodium 139 mmol/L (137-145); Total Protein 8.1 g/dL (6.3-8.2)
--- NOTE | 2024-12-28 12:06 | ED_ITS ---
HPI - General Adult General Chief complaint: Extremity Problem,Nontraumatic Stated complaint: bruising to left arm Time Seen by Provider: 12/28/24 11:22 History of Present Illness HPI narrative: Patient 89-year-old gentleman presents emergency department chief complaint of bruising in the left arm. The patient states over the last 2 weeks had a large bruise that appeared in his left deltoid area the patient states that has become larger patient reports he is not on blood thinners but does take aspirin. Patient reports no known trauma reports that he has no problems with range of motion reports that he has seen his primary care provider and was seen in urgent care and told to come to the emergency department for evaluation. Related Data Home Medications ?Medication ?Instructions ?Recorded ?Confirmed ?Last Taken ?Type multivitamin 1 tablet PO DAILY 06/25/19 12/21/24 Unknown History cholecalciferol (vitamin D3) 25 1,000 unit PO DAILY 06/30/19 12/21/24 Unknown History mcg (1,000 unit) capsule (Vitamin D3) Lactobacillus acidophilus 250 100 mmu cells PO DAILY 01/02/21 12/21/24 Unknown History million cell capsule aspirin 81 mg tablet,delayed 81 mg PO DAILY 12/21/24 12/21/24 Unknown History release (Adult Low Dose Aspirin) Allergies Allergy/AdvReac Type Severity Reaction Status Date / Time No Known Allergies Allergy Verified 12/28/24 11:13 Review of Systems 2 Review of Systems: A 10 system review of systems was completed on the patient and is negative except for what is stated in the HPI. Nursing and ancillary documentation was reviewed. 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 History of blepharoplasty H/O hemorrhoidectomy Family History Family History Sibling Patient's sister is in good health Father Acute myocardial infarction, Onset Age: 91 Patient's father is Family history of cardiovascular disease, Onset Age: 91 Mother Family history of respiratory disorder, Onset Age: 90 Other No active medical problems Social History Social History Social History: Smoking status: Former smoker Tobacco type: cigarettes Second hand tobacco smoke exposure: Yes Alcohol intake: never Alcohol use details: Denies alcohol use Substance use: never Substance use type: does not use Lack of Transportation: No Lack of Food: Never True Current Housing: I Do Not Have Housing Concerned About Future Housing: No Difficulty Paying Gas/Electric Bills: No Difficulty Paying for Meds: No Currently Unemployed: No Education: Grade School Difficulty w/ Childcare or Family Care: No Living arrangements: with family Occupation/Education: retired Gender identity (if verbalized by the patient): Male Sexual Orientation (if Verbalized by the Patient): Straight or Heterosexual Exam 2 Narrative: GENERAL: Well-appearing, well-nourished, and in no acute distress. HEAD: Normocephalic, atraumatic. EYES: PERRLA and EOMI. ENT: Nares clear, no rhinorrhea or epistaxis. Mucous membranes moist. NECK: Supple. CHEST: Clear to auscultation. No respiratory distress. HEART: Regular rate and rhythm. No murmur heard. Normal peripheral pulses. ABDOMEN: Soft, nontender, nondistended, normal active bowel sounds. EXTREMITIES: Normal range of motion, bruising present to the left upper extremity. No edema. SKIN: Warm, dry, no rash. NEURO: No focal deficits. Alert and oriented x3. PSYCH: Normal mood and affect. Course Vital Signs Vital signs: Vital Signs Temperature 36.5 C 12/28/24 11:09 Pulse Rate 67 12/28/24 11:09 Respiratory Rate 17 12/28/24 11:09 Blood Pressure 150/82 H 12/28/24 11:09 Pulse Oximetry 97 12/28/24 11:09 Oxygen Delivery Room Air 12/28/24 11:09 Temperature 36.5 C 12/28/24 11:09 Pulse Rate 67 12/28/24 11:09 Respiratory Rate 17 12/28/24 11:09 Blood Pressure 150/82 H 12/28/24 11:09 Pulse Oximetry 97 12/28/24 11:09 Oxygen Delivery Room Air 12/28/24 11:09 Medical Decision Making MDM Narrative Medical decision making narrative: Differential diagnosis includes fracture, DVT, ecchymosis Plain film x-rays of the humerus showed no evidence of fracture Ultrasound showed no evidence of DVT CBC showed a white count of 7.5 hemoglobin is 14.3 coags are within normal limits electrolytes are within normal limits including renal function Vital Signs Vital Signs: Vital Signs Temperature 36.5 C 12/28/24 11:09 Pulse Rate 12/28/24 11:09 Respiratory Rate 12/28/24 11:09 Blood Pressure 150/82 H 12/28/24 11:09 Pulse Oximetry 97 12/28/24 11:09 Oxygen Delivery Room Air 12/28/24 11:09 Temperature 36.5 C 12/28/24 11:09 Pulse Rate 67 12/28/24 11:09 Respiratory Rate 12/28/24 11:09 Blood Pressure 150/82 H 12/28/24 11:09 Pulse Oximetry 97 12/28/24 11:09 Oxygen Delivery Room Air 12/28/24 11:09 Lab Data 12/28/24 11:50 12/28/24 11:50 Labs: Lab Results 12/28/24 Range/Units 11:50 WBC 7.5 (4.5-10.0) K/mm3 RBC 4.81 (4.6-6.20) M/mm3 Hgb 14.3 (14.0-18.0) g/dL Hct 43.1 (42.0-52.0) % MCV 89.6 (80-100) fl MCH 29.7 (26-34) pg MCHC 33.2 (32-36) g/dl RDW 13.7 (11.5-14.5) % Plt Count 200 (150-375) k/mm3 MPV 9.5 (7.4-10.4) fl Immature Gran % (Auto) 0.4 (0-0.5) % Neut % (Auto) 62.6 (45.5-73.1) % Lymph % (Auto) 23.9 (18.3-44.2) % Smyth % (Auto) 9.7 H (2.6-8.5) % Eos % (Auto) 2.5 (0-4.4) % Baso % (Auto) 0.9 (0.2-1.2) % Lymph # (Auto) 1.78 (0.9-3.2) K/mm3 Smyth # (Auto) 0.7 H (0.1-0.6) K/mm3 Eos # (Auto) 0.2 (0-0.3) K/mm3 Baso # (Auto) 0.1 (0.0-0.1) K/mm3 Abs Immat Gran (auto) 0.03 (0.00-0.031) K/mm3 Absolute Neuts (auto) 4.7 (1.3-6.7) K/mm3 Absolute Nucleated RBC 0.000 (0.0-0.012) K/mm3 Nucleated RBC % 0.0 (0.0-0.2) % PT 14.6 (11.1-14.7) Seconds INR 1.1 APTT 31.7 (22.3-36.8) Seconds Sodium 139 (137-145) mmol/L Potassium 4.1 (3.4-5.0) mmol/L Chloride 103 (98-107) mmol/L Carbon Dioxide 28 (22-30) mmol/L Anion Gap 8 (4-12) mmol/L BUN 16 (9-20) mg/dL Creatinine 0.95 (0.7-1.3) mg/dL Estim Creat Clear Calc 43 ml/min Estimated GFR > 60 (59 - ) Glucose 86 (65-110) mg/dL Calcium 9.6 (8.4-10.2) mg/dL Total Bilirubin 0.8 (0.2-1.3) mg/dL AST 44 (17-59) U/L ALT 29 (6-50) U/L Alkaline Phosphatase 94 (38-126) U/L Total Protein 8.1 (6.3-8.2) g/dL Albumin 4.4 (3.5-5.1) g/dL Discharge Plan Discharge Clinical Impression: Traumatic ecchymosis of left upper arm Patient Disposition: Home Condition: Stable Instructions: Antibiotic Form, Contusion in Adults (ED), Hematoma (ED), Ecchymosis (ED) Patient Language: Yakut Prescriptions: No Action baclofen 10 mg tablet See Rx Instructions .Route .COMPLEX PRN (Reason: muscle pain) Qty: 7 0RF Rx Instructions: 0.5-1 tab bid prn pain multivitamin Tablet 1 tablet PO DAILY cholecalciferol (vitamin D3) [Vitamin D3] 25 mcg (1,000 unit) capsule 1,000 unit PO DAILY Lactobacillus acidophilus 1.5 mg (250 million cell) capsule 100 mmu cells PO DAILY aspirin [Adult Low Dose Aspirin] 81 mg tablet,delayed release (DR/EC) 81 mg PO DAILY finasteride 5 mg tablet See Rx Instructions .ROUTE .COMPLEX Qty: 90 1RF Dose Instruction: TAKE 1 TABLET BY MOUTH EVERY DAY Rx Instructions: TAKE 1 TABLET BY MOUTH EVERY DAY simvastatin 40 mg tablet See Rx Instructions .ROUTE .COMPLEX Qty: 90 1RF Dose Instruction: TAKE 1 TABLET BY MOUTH EVERY DAY Rx Instructions: TAKE 1 TABLET BY MOUTH EVERY DAY lisinopril-hydrochlorothiazide 10-12.5 mg tablet See Rx Instructions .ROUTE .COMPLEX Qty: 90 1RF Dose Instruction: TAKE 1 TABLET BY MOUTH EVERY DAY Rx Instructions: TAKE 1 TABLET BY MOUTH EVERY DAY sertraline 50 mg tablet See Rx Instructions .ROUTE .COMPLEX Qty: 90 1RF Dose Instruction: TAKE 1 TABLET BY MOUTH EVERY DAY Rx Instructions: TAKE 1 TABLET BY MOUTH EVERY DAY Follow-up/Referrals: Jeremiah Price MD [Primary Care Provider] - Time of Disposition: 13:21
[2024-12-28 12:14] LABS: INR 1.1; Prothrombin Time 14.6 Seconds (11.1-14.7)
[2024-12-28 12:15] LABS: Partial Thromboplastin Time 31.7 Seconds (22.3-36.8)
--- OUTSIDE RECORDS SUMMARY | 2024-12-28 12:48 | XMS_ITS | Continuity of Care Document ---
Author Organization [facility] Address [address] [place] [address] Phone Care Team Providers Care Radio Engineer Name Role Phone Oralia Ruiz Unavailable Unavailable Advance Directives Directive Yes / No Effective Date File Name No Information Encounters Encounter Description Practice Location Reason(s) For Visit Diagnoses Date Provider Providers Copied on Encounter [facility], [address], [place], [place], [id number], [place] tel:[phone] SEC [facility] No Information [address] , [address], [place], [address], [place]. tel:[phone] Referring Provider: Ervin Pereira MD B, [address], [place], [address]. tel:[phone] Family History Family Member Type Diagnosis Age At Onset No Information Payers Payer name Insurance type Covered alliance party ID Authoriza tion(s) Medicare [facility] [id number] Social History Type Description Quantity Date Captured [...]
--- OUTSIDE RECORDS SUMMARY | 2024-12-28 12:48 | XMS_ITS | Referral Summary ---
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
--- OUTSIDE RECORDS SUMMARY | 2024-12-28 12:48 | XMS_ITS | Clinical Summary ---
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
== END 2024-12-28 14:17 | disposition home or self-care (01) ==
PROVIDERS: Emergency Provider Emergency Medicine; PCP Family Medicine
DX: S40.022A Contusion of left upper arm, initial encounter (principal); F01.50 Vascular dementia, unspecified severity, without behavioral disturbance, psychotic disturbance, mood disturbance, and anxiety; I25.10 Atherosclerotic heart disease of native coronary artery without angina pectoris; I10 Essential (primary) hypertension; I67.9 Cerebrovascular disease, unspecified; E78.5 Hyperlipidemia, unspecified; K75.81 Nonalcoholic steatohepatitis (NASH); N40.0 Benign prostatic hyperplasia without lower urinary tract symptoms; G47.33 Obstructive sleep apnea (adult) (pediatric); E55.9 Vitamin D deficiency, unspecified; M19.019 Primary osteoarthritis, unspecified shoulder; F32.A Depression, unspecified; Z96.649 Presence of unspecified artificial hip joint; Z85.828 Personal history of other malignant neoplasm of skin; Z86.73 Personal history of transient ischemic attack (TIA), and cerebral infarction without residual deficits; Z87.891 Personal history of nicotine dependence; Z79.82 Long term (current) use of aspirin; Z79.899 Other long term (current) drug therapy; M19.022 Primary osteoarthritis, left elbow; X58.XXXA Exposure to other specified factors, initial encounter
CPT/HCPCS: 36415; 73060; 80053; 85025; 85610; 85730; 93971; 99284

== ENCOUNTER 2025-04-25 13:18 | Emergency (ER) | payer OTHER, SELFPAY ==
--- OUTSIDE RECORDS SUMMARY | 2006-05-13 10:30 | XMS_ITS | Continuity of Care Document ---
Author Organization [facility] Address [address] [place] [address] Phone Care Team Providers Care Collection Officer Name Role Phone Oralia Ruiz Unavailable Unavailable Advance Directives Directive Yes / No Effective Date File Name No Information Encounters Encounter Description Practice Location Reason(s) For Visit Diagnoses Date Provider Providers Copied on Encounter [facility], [address], [place], [place], [id number], [place] tel:[phone] [facility] No Information [address] , [address], [place], [address], [place]. tel:[phone] Referring Provider: Ervin Pereira MD B, [address], [place], [address]. tel:[phone] Family History Family Member Type Diagnosis Age At Onset No Information Payers Payer name Insurance type Covered democrat ID Authoriza tion(s) Medicare [facility] [id number] Social History Type Description Quantity Date Captured [...]
--- NOTE | ~2025-04-25 | CT_ITS ---
EXAMINATION: CT facial & cervical spine wo COMPARISON: None HISTORY: fall , [place], R facial bruising TECHNIQUE: Axial images were obtained without IV contrast. Sagittal, coronal reconstruction images were obtained from the axial views. CT scan performed using dose optimization techniques including the following automated exposure control; adjustment of mA and/or kV; use of iterative reconstruction technique. Automatic exposure control was used to reduce radiation dose. Permanent radiation dose record is archived to PACS. FINDINGS: CT facial bones: The nasal bones are intact. The anterior maxillary sinus ansari and zygomatic arches are intact. The temporomandibular joints are intact. Orbital floors and medial orbits are intact. Mastoid air cells grossly appear unremarkable. There is no retrobulbar hemorrhage identified. There is no significant preseptal soft tissue swelling. Soft tissue swelling is noted overlying the right zygomatic arches and maxilla with areas of subcutaneous hemorrhage. The soft tissues appear grossly unremarkable. CT cervical spine: There are scattered subcentimeter sclerotic focus seen on the bone islands in the absence of a previous history of neoplasm. No lytic lesions are identified. Grade 1 anterolisthesis of C2 on C3, no fracture identified, grade 1 anterolisthesis of C7 on T1. Severe loss of disc height C3-4 C4-5 C5-6 and C6-7 with severe canal and foraminal stenosis, outpatient MRI is recommended. IMPRESSION: 1. No acute fracture Reviewed, dictated and finalized at location P. IMPRESSION: 1. No acute fracture
--- NOTE | ~2025-04-25 | XR_ITS ---
Examination: XR hip LT 2V w AP pelvis, XR knee LT min 4V Clinical History: fall, pain, bruising Comparison: None Technique: 2 views left hip with AP pelvis, 4 views left knee Findings/impression: Left hip with AP pelvis: 1. Left hip arthroplasty with intertrochanteric cerclage wire intact, without dislocation or associated acute fracture. 2. Mild acetabular protrusio of acetabular cup. 3. No acute pelvic fracture identified. 4. Single view right hip without acute abnormality. Left knee: 1. No acute fracture, dislocation, or effusion left knee. 2. Significant prepatellar soft tissue thickening. 3. Calcified atherosclerotic disease. Reviewed, dictated and finalized at location R.
--- NOTE | ~2025-04-25 | CT_ITS ---
EXAMINATION: CT brain wo cristopher, 04/25/2025 13:50 CDT HISTORY: fall , COMPARISON: No comparisons available. Technique: Axial images obtained of the brain without contrast. One or more of the following dose reduction techniques were used: automated exposure control, adjustment of the mA and/or kV according to patient size, use of iterative reconstruction technique. Findings: No acute infarct or parenchymal hemorrhage. No abnormal mass or mass effect. No midline shift. No extra-axial fluid collections. No hydrocephalus. Mastoid air cells unremarkable. Sinuses and orbits unremarkable. No acute fracture. No significant facial or scalp soft tissue swelling evident. No radiopaque foreign body is seen. Impression: 1.No acute intracranial abnormality. Reviewed, dictated and finalized at location P. Impression: 1.No acute intracranial abnormality.
[2025-04-25 13:42] VITALS: BP 124/59; PULSE 83; RESP 16; TEMP 36.6; O2SAT 97
--- NOTE | 2025-04-25 13:45 | ED_ITS ---
HPI - Fall General Chief Complaint: Fall <ROSE Guy Last Filed: 04/25/25 13:48> Stated Complaint: fall, bruising to face and leg <ROSE Guy Last Filed: 04/25/25 13:48> Time Seen by Provider: 04/25/25 13:40 <ROSE Guy Last Filed: 04/25/25 13:48> Focused HPI: Patient is an 89-year-old male who presents to the ED with report fall. Patient reports he tripped and fell on . Hit his head/R sided face on a table. Denied LOC. Has bruising to L thigh/knee, R sided periorbital region. Is on ASA, denies any other blood thinners. Denies vision changes, dizziness, lightheadedness, neck or back pain. Has been ambulatory w/o issue. States the swelling to his L leg has improved some since . GENERAL: Elderly, well-nourished, and in no acute distress. HEAD: Normocephalic, atraumatic. EENT: Purple bruising throughout right periorbital region. PERRL/EOMI, conjunctiva clear NECK: No midline spinal tenderness CHEST: Clear to auscultation. ?No respiratory distress. HEART: Regular rate and rhythm.? MSK: Diffuse bruising yellow/purple throughout medial L thigh, L knee, L medial lower leg. Mild TTP throughout L anterior knee. NEURO: ?Alert and oriented x3. Patient screened in triage and initial orders placed.? ?Additional care and disposition to be based upon?diagnostic testing and treatment. <ROSE Guy Last Filed: 04/25/25 13:48> Source: patient <ROSE Guy Last Filed: 04/25/25 13:48> Mode of arrival: ambulatory <ROSE Guy Last Filed: 04/25/25 13:48> Limitations: no limitations <ROSE Guy Last Filed: 04/25/25 13:48> History of Present Illness HPI Narrative: Agree with the above with the following additions/corrections: Tripped and fell on . Hit right face on the chair then fell on the ground. Usually ambulates with a cane at baseline, and A&O x2. Hip replacement x2 in 2004. Denies any vision changes, blurred or double. Bruising to the face and leg. Has been using 1/2 a Tylenol QHS. Brusing to the right face and left leg. Pain improved but there is still edema and ecchymosis with purplish and yellow bruise. On 81mg ASA. No LOC. <Alyssa Howard MD - Last Filed: 04/28/25 21:58> Related Data Home Medications: Home Medications ?Medication ?Instructions ?Recorded ?Confirmed ?Last Taken ?Type multivitamin 1 tablet PO DAILY 06/25/19 0 12/21/24 Unknown History cholecalciferol (vitamin D3) 25 1,000 unit PO DAILY 12/21/24 Unknown History mcg (1,000 unit) capsule (Vitamin D3) Lactobacillus acidophilus 250 100 mmu cells PO DAILY 0 01/02/21 12/21/24 Unknown History million cell capsule aspirin 81 mg tablet,delayed 81 mg PO DAILY 12/21/24 0 12/21/24 Unknown History release (Adult Low Dose Aspirin) <Gardenia Rogers PA-C - Last Filed: 04/25/25 13:48> Allergies/Adverse Reactions: Allergies Allergy/AdvReac Type Severity Reaction Status Date / Time No Known Allergies Allergy Verified 04/28/25 12:50 <Gardenia Rogers PA-C - Last Filed: 04/25/25 13:48> [facility] Past Medical History Medical History: Medical History Vascular dementia RBBB BPH (benign prostatic hyperplasia) Completed stroke Depression HAYLEY (obstructive sleep apnea) Cerebrovascular disease SR (nonalcoholic steatohepatitis) Vitamin D deficiency Hyperlipidemia Hypertension CAD (coronary artery disease) Adhesive capsulitis Osteoarthritis, shoulder <Gardenia Rogers PA-C - Last Filed: 04/25/25 13:48> Surgical History Surgical History: Surgical History History of appendectomy 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, 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 History of blepharoplasty H/O hemorrhoidectomy <Gardenia Rogers PA-C - Last Filed: 04/25/25 13:48> Family History Family History: Family History (Reviewed 04/28/25 @ 12:52 by Stacie Tamayo [facility]) Sibling Patient's sister is in good health Father Acute myocardial infarction, Onset Age: 91 Patient's father is Family history of cardiovascular disease, Onset Age: 91 Mother Family history of respiratory disorder, Onset Age: 90 Other No active medical problems <Gardenia Rogers PA-C - Last Filed: 04/25/25 13:48> Social History Social History: Social History (Reviewed 04/28/25 @ 12:52 by Stacie Tamayo [facility]) Social History: Smoking status: Former smoker Tobacco type: cigarettes Second hand tobacco smoke exposure: Yes Alcohol intake: never Alcohol use details: Denies alcohol use Substance use: never Substance use type: does not use Lack of Transportation: No Lack of Food: Never True Current Housing: I Do Not Have Housing Concerned About Future Housing: No Difficulty Paying Gas/Electric Bills: No Difficulty Paying for Meds: No Currently Unemployed: No Education: Grade School Difficulty w/ Childcare or Family Care: No Living arrangements: with family Occupation/Education: retired Gender identity (if verbalized by the patient): Male Sexual Orientation (if Verbalized by the Patient): Straight or Heterosexual <Gardenia Rogers PA-C - Last Filed: 04/25/25 13:48> Exam Const: General: healthy appearing, no acute distress and alert; No diaphoretic <Alyssa Howard MD - Last Filed: 04/28/25 21:58> Nutritional Appearance: well nourished <Alyssa Howard MD - Last Filed: 04/28/25 21:58> Limitations: no limitations <Alyssa Howard MD - Last Filed: 04/28/25 21:58> HENMT: Face/Nose/Sinus: Normal external nose present <Alyssa Howard MD - Last Filed: 04/28/25 21:58> Other: right periorbital and right facial ecchymosis <Alyssa Howard MD - Last Filed: 04/28/25 21:58> Eyes: Conjunctivae: conjunctivae normal <Alyssa Howard MD - Last Fi led: 04/28/25 21:58> Direct Ophthalmoscopy: no photophobia <Alyssa Howard MD - Last Filed: 04/28/25 21:58> Neck: Neck: no meningeal signs <Alyssa Howard MD - Last Filed: 04/28/25 21:58> Resp: Effort & Inspection: normal respiratory effort, not labored, no retractions and not tachypneic <Alyssa Howard MD - Last Filed: 04/28/25 21:58> Cardio: Rate: regular rate, not bradycardic and not tachycardic <Alyssa Howard MD - Last Filed: 04/28/25 21:58> GI: GI Palp: Yes Soft to palpation and No Rigid due to palpation <Alyssa Howard MD - Last Filed: 04/28/25 21:58> Skin: General skin exam: no jaundice and no pallor <Alyssa Howard MD - Last Filed: 04/28/25 21:58> Neuro: General: moves all extremities <Alyssa Howard MD - Last Filed: 04/28/25 21:58> Speech: normal speech <Alyssa Howard MD - Last Filed: 04/28/25 21:58> Extrem: Other: Left calf edematous and with ecchymosis ; compartment not taut however; less appreciable in the left thigh <Alyssa Howard MD - Last Filed: 04/28/25 21:58> Psych: Mental Status: mental status grossly normal <Alyssa Howard MD - Last Filed: 04/28/25 21:58> Affect: normal affect and No Sad affect present <Alyssa Howard MD - Last Filed: 04/28/25 21:58> Attitude: cooperative <Alyssa Howard MD - Last Filed: 04/28/25 21:58> Course Vital Signs Vital signs: Vital Signs Temperature 98 F 04/25/25 13:42 Pulse Rate 83 04/25/25 13:42 Respiratory Rate 16 04/25/25 13:42 Blood Pressure 124/59 L 04/25/25 13:42 Pulse Oximetry 97 04/25/25 13:42 Oxygen Delivery Room Air 04/25/25 13:42 Temperature 98.1 F 04/25/25 17:22 Pulse Rate 76 04/25/25 17:22 Respiratory Rate 16 04/25/25 17:22 Blood Pressure 131/71 04/25/25 17:22 Pulse Oximetry 97 04/25/25 17:22 Oxygen Delivery Room Air 04/25/25 15:53 <Gardenia Rogers PA-C - Last Filed: 04/25/25 13:48> Vital Signs Temperature 98 F 04/25/25 13:42 Pulse Rate 83 04/25/25 13:42 Respiratory Rate 16 04/25/25 13:42 Blood Pressure 124/59 L 04/25/25 13:42 Pulse Oximetry 97 04/25/25 13:42 Oxygen Delivery Room Air 04/25/25 13:42 Temperature 98.1 F 04/25/25 17:22 Pulse Rate 76 04/25/25 17:22 Respiratory Rate 16 04/25/25 17:22 Blood Pressure 131/71 04/25/25 17:22 Pulse Oximetry 97 04/25/25 17:22 Oxygen Delivery Room Air 04/25/25 15:53 <Alyssa Howard MD - Last Filed: 04/28/25 21:58> MDM - Fall MDM Narrative Medical decision making narrative: MSE bY ILENE in triage. <Gardenia Rogers PA-C - Last Filed: 04/25/25 13:48> MSE bY ILENE in triage. Patient presents after a fall on in which he tripped accidentally In the ED vital signs are acceptable, afebrile. Not really pain, they were just concerned about the bruising and swelling. Ad vised R-I-C-E and appropriate pain regimen as well as PCP follow up. Otherwise stable for discharge. <Alyssa Howard MD - Last Filed: 04/28/25 21:58> Differential Diagnosis Differential diagnosis: Likely compression fracture and other (intracranial hemorrhage; facial bone fractures; hematoma; ecchymosis; fracture/dislocation/internal derangement to knee) <Alyssa Howard MD - Last Filed: 04/28/25 21:58> Imaging Data Radiologist's impression: Impressions Head CT 04/25/25 14:01 Impression: 1.No acute intracranial abnormality. Head/Cervical Spine/Facial Bones CT 04/25/25 14:13 IMPRESSION: 1. No acute fracture Findings/impression: Left hip with AP pelvis: 1. Left hip arthroplasty with intertrochanteric cerclage wire intact, without dislocation or associated acute fracture. 2. Mild acetabular protrusio of acetabular cup. 3. No acute pelvic fracture identified. 4. Single view right hip without acute abnormality. Left knee: 1. No acute fracture, dislocation, or effusion left knee. 2. Significant prepatellar soft tissue thickening. 3. Calcified atherosclerotic disease. <Alyssa Howard MD - Last Filed: 04/28/25 21:58> Discharge Plan Discharge Clinical Impression: Fall, Traumatic ecchymosis of face, Traumatic ecchymosis of left lower leg, Leg edema, left <Gardenia Rogers PA-C - Last Filed: 04/25/25 13:48> Patient Disposition: Home <Gardenia Rogers PA-C - Last Filed: 04/25/25 13:48> Condition: Stable <Gardenia Rogers PA-C - Last Filed: 04/25/25 13:48> Instructions: Antibiotic Form, Fall Prevention for Older Adults (ED), P.R.I.C.E. Treatment (ED), Edema (ED), Ecchymosis (ED) <Gardenia Rogers PA-C - Last Filed: 04/25/25 13:48> Additional Instructions: No evidence of fracture/broken bones or bleeding in brain as we discussed. The edema/swelling is expected as is the bruising. This should get better with time but it is important that you continue to try to elevate the leg above the level of the heart while resting. Can also use compression with an CORBY wrap. Follow-up with your primary care physician. Return to the emergency department any new or worsening symptoms. Continue taking your medications as prescribed in the interim. Acetaminophen/Tylenol (maximum 4000 mg per day) is safe to take with NSAIDs (ibuprofen/Motrin) for pain relief. <Gardenia Rogers PA-C - Last Filed: 04/25/25 13:48> Patient Language: Cymraes <Gardenia Rogers PA-C - Last Filed: 04/25/25 13:48> Prescriptions: New acetaminophen 500 mg capsule 1,000 mg PO Q6H PRN (Reason: pain) Qty: 30 0RF ibuprofen 200 mg capsule 200 mg PO Q6H PRN (Reason: fever or pain) Qty: 30 0RF No Action baclofen 10 mg tablet See Rx Instructions .Route .COMPLEX PRN (Reason: muscle pain) Qty: 7 0RF Rx Instructions: 0.5-1 tab bid prn pain multivitamin Tablet 1 tablet PO DAILY cholecalciferol (vitamin D3) [Vitamin D3] 25 mcg (1,000 unit) capsule 1,000 unit PO DAILY Lactobacillus acidophilus 1.5 mg (250 million cell) capsule 100 mmu cells PO DAILY aspirin [Adult Low Dose Aspirin] 81 mg tablet,delayed release (DR/EC) 81 mg PO DAILY finasteride 5 mg tablet See Rx Instructions .ROUTE .COMPLEX Qty: 90 1RF Dose Instruction: TAKE 1 TABLET BY MOUTH EVERY DAY Rx Instructions: TAKE 1 TABLET BY MOUTH EVERY DAY simvastatin 40 mg tablet See Rx Instructions .ROUTE .COMPLEX Qty: 90 1RF Dose Instruction: TAKE 1 TABLET BY MOUTH EVERY DAY Rx Instructions: TAKE 1 TABLET BY MOUTH EVERY DAY lisinopril-hydrochlorothiazide 10-12.5 mg tablet See Rx Instructions .ROUTE .COMPLEX Qty: 90 1RF Dose Instruction: TAKE 1 TABLET BY MOUTH EVERY DAY Rx Instructions: TAKE 1 TABLET BY MOUTH EVERY DAY sertraline 50 mg tablet See Rx Instructions .ROUTE .COMPLEX Qty: 90 1RF Dose Instruction: TAKE 1 TABLET BY MOUTH EVERY DAY Rx Instructions: TAKE 1 TABLET BY MOUTH EVERY DAY <Gardenia Rogers PA-C - Last Filed: 04/25/25 13:48> Follow-up/Referrals: Jeremiah Price MD [Primary Care Provider, Family Practice] <Gardenia Rogers PA-C - Last Filed: 04/25/25 13:48> Time of Disposition: 17:08 <Gardenia Rogers PA-C - Last Filed: 04/25/25 13:48> 17:08 <Alyssa Howard MD - Last Filed: 04/28/25 21:58>
--- OUTSIDE RECORDS SUMMARY | 2025-04-25 14:31 | XMS_ITS | Clinical Summary ---
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
[2025-04-25 15:53] VITALS: BP 147/75; PULSE 74; RESP 16; TEMP 36.6; O2SAT 98
--- OUTSIDE RECORDS SUMMARY | 2025-04-25 16:33 | XMS_ITS | Clinical Summary ---
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
[2025-04-25 17:22] VITALS: BP 131/71; PULSE 76; RESP 16; TEMP 36.7; O2SAT 97
== END 2025-04-25 17:23 | disposition home or self-care (01) ==
PROVIDERS: Emergency Provider Student in an Organized Health Care Education/Training Program; PCP Family Medicine
DX: S00.11XA Contusion of right eyelid and periocular area, initial encounter (principal); S80.12XA Contusion of left lower leg, initial encounter; R60.0 Localized edema; F01.50 Vascular dementia, unspecified severity, without behavioral disturbance, psychotic disturbance, mood disturbance, and anxiety; F32.A Depression, unspecified; G47.30 Sleep apnea, unspecified; K75.81 Nonalcoholic steatohepatitis (NASH); E78.5 Hyperlipidemia, unspecified; I10 Essential (primary) hypertension; I25.10 Atherosclerotic heart disease of native coronary artery without angina pectoris; M19.90 Unspecified osteoarthritis, unspecified site; W01.0XXA Fall on same level from slipping, tripping and stumbling without subsequent striking against object, initial encounter
CPT/HCPCS: 70450; 70486; 72125; 73502; 73564; 99284

== ENCOUNTER 2025-05-13 11:06 | Emergency (ER) | payer OTHER, SELFPAY ==
[2025-05-13 11:18] VITALS: BP 140/74; PULSE 79; RESP 16; TEMP 36.7; O2SAT 98
--- NOTE | 2025-05-13 11:21 | ED.GENADULT ---
HPI - General Adult General Chief complaint: Eye Problems Stated complaint: Right Eye Irritation Time Seen by Provider: 05/13/25 11:21 Source: patient, RN notes reviewed and old records reviewed Mode of arrival: ambulatory Limitations: no limitations History of Present Illness HPI narrative: 89-year-old male presents to the [facility] with concerns of itching, tearing and crusting of the right eye. Per medical record it states that he had fallen on April 21, was seen in the ER on April 25, CT was negative at that time. Did follow-up with primary care provider on 04/28. Comes in with some redness to the conjunctiva of the right eye, tearing and crusting. reports they tried getting hold of the eye doctor in unable to get in until Friday. Patient denies any visual changes. Denies orbital tenderness Related Data Home Medications ?Medication ?Instructions ?Recorded ?Confirmed ?Last Taken ?Type multivitamin 1 tablet PO DAILY 06/25/19 12/21/24 Unknown History cholecalciferol (vitamin D3) 25 1,000 unit PO DAILY 06/30/19 12/21/24 Unknown History mcg (1,000 unit) capsule (Vitamin D3) Lactobacillus acidophilus 250 100 mmu cells PO DAILY 01/02/21 12/21/24 Unknown History million cell capsule aspirin 81 mg tablet,delayed 81 mg PO DAILY 12/21/24 12/21/24 Unknown History release (Adult Low Dose Aspirin) Allergies Allergy/AdvReac Type Severity Reaction Status Date / Time No Known Allergies Allergy Verified 05/13/25 11:28 Review of Systems Review of Systems: All systems reviewed & are unremarkable except as noted in HPI and below Constitutional: Constitutional: Reports no additional constitutional complaints Eyes: Eyes: Reports as per HPI ENT: Reports system reviewed and no additional complaints, except as documented Cardiovascular: Cardiovascular: Reports no additional cardiovascular complaints, Denies chest pain and Denies dyspnea Respiratory: Respiratory: Reports no additional respiratory complaints, Denies chest congestion, Denies cough and Denies dyspnea Musculoskeletal: Musculoskeletal: Reports no additional musculoskeletal complaints Integumentary/Breasts: Skin/Breast: Reports system reviewed and no additional complaints, except as docu PMFSH Past Medical History Medical History Vascular dementia RBBB BPH (benign prostatic hyperplasia) Completed stroke Depression HAYLEY (obstructive sleep apnea) Cerebrovascular disease SR (nonalcoholic steatohepatitis) Vitamin D deficiency Hyperlipidemia Hypertension CAD (coronary artery disease) Adhesive capsulitis Osteoarthritis, shoulder Surgical History Surgical History History of appendectomy 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, 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 History of blepharoplasty H/O hemorrhoidectomy Family History Family History Sibling Patient's sister is in good health Father Acute myocardial infarction, Onset Age: 91 Patient's father is Family history of cardiovascular disease, Onset Age: 91 Mother Family history of respiratory disorder, Onset Age: 90 Other No active medical problems Social History Social History Social History: Smoking status: Former smoker Tobacco type: cigarettes Second hand tobacco smoke exposure: Yes Alcohol intake: never Alcohol use details: Denies alcohol use Substance use: never Substance use type: does not use Lack of Transportation: No Lack of Food: Never True Current Housing: I Do Not Have Housing Concerned About Future Housing: No Difficulty Paying Gas/Electric Bills: No Difficulty Paying for Meds: No Currently Unemployed: No Education: Grade School Difficulty w/ Childcare or Family Care: No Living arrangements: with family Occupation/Education: retired Gender identity (if verbalized by the patient): Male Sexual Orientation (if Verbalized by the Patient): Straight or Heterosexual Comments At the time of my signature, I reviewed and agree with the nursing past medical, surgical, social, and family history. There is no relevant family history pertinent to the patient complaint. Exam Const: General: cooperative, no acute distress, well developed, alert, ill appearing chronically, well groomed and well nourished Nutritional Appearance: well nourished Orientation/consciousness: patient oriented x3 Limitations: no limitations HENMT: Head: normal to inspection Face and sinus: sinuses nontender and face symmetric Eyes: General: appearance normal, both eyes and all related structures Alignment and Position: alignment normal Eyelids: eyelid abnormality right upper eyelid lid margins crusty/scaly; without erythema and right lower eyelid lid margins crusty/scaly; with no swelling Conjunctivae: conjunctival abnormality right conjunctival injection and discharge (tearing) Neck: Neck: normal visual inspection, full ROM, no lymphadenopathy and no meningeal signs Chest: Chest palpation & inspection: normal inspection of the chest Resp: Effort & Inspection: normal respiratory effort and able to speak in complete sentences Cardio: Rate: regular rate Skin: General skin exam: normal color and no rashes or lesions noted Neuro: General: patient oriented x3, moves all extremities and no meningeal signs Cognition (Neuro): normal cognition Speech: normal speech Gait exam (Neuro): Normal gait present Extrem: General: normal to inspection, full ROM and capillary refill normal Psych: Appearance: grossly normal and well kempt Mental Status: mental status grossly normal Speech and movement: Normal speech and movement present and Clear speech present Affect: normal affect Attitude: cooperative Course Course Level of Care: Express Care Visit Vital Signs Vital signs: Vital Signs Temperature 98.0 F 05/13/25 11:18 Pulse Rate 79 05/13/25 11:18 Respiratory Rate 16 05/13/25 11:18 Blood Pressure 140/74 05/13/25 11:18 Pulse Oximetry 98 05/13/25 11:18 Oxygen Delivery Room Air 05/13/25 11:18 Temperature 98.0 F 05/13/25 11:18 Pulse Rate 79 05/13/25 11:18 Respiratory Rate 16 05/13/25 11:18 Blood Pressure 140/74 05/13/25 11:18 Pulse Oximetry 98 05/13/25 11:18 Oxygen Delivery Room Air 05/13/25 11:18 Reviewed Medical Decision Making MDM Narrative Medical decision making narrative: Patient sitting in exam room. Patient is nontoxic, presents with . Patient presents with eye discharge, redness to the right eye. Patient reports it has been going on for little while. Patient's visual acuity he reports is his normal. Discussed with that he needs to see an eye doctor in regards to poor eye sight. Also for following up for a more thorough eye exam Discharge clear, crusting is noted. Will place on antibiotic eyedrops. Symptoms he reports since the fall. Reviewed CT scan, previous visits, no indication of eye issues. Discharge instructions reviewed with patient, as well as provided in writing per nursing staff. The instructions also include specific and strict return/GO TO THE ER as well as f/u information. All questions have been answered, and the patient deny any further questions with discharge and discharge plan. Some parts of this dictation were generated by voice recognition software and may contain typographical and/or grammatical inaccuracies. Differential Diagnosis Differential Diagnosis: Conjunctivitis Medical Records Medical records reviewed: Yes I reviewed the external patient's medical records. Vital Signs Vital Signs: Vital Signs Temperature 98.0 F 05/13/25 11:18 Pulse Rate 79 05/13/25 11:18 Respiratory Rate 16 05/13/25 11:18 Blood Pressure 140/74 05/13/25 11:18 Pulse Oximetry 98 05/13/25 11:18 Oxygen Delivery Room Air 05/13/25 11:18 Temperature 98.0 F 05/13/25 11:18 Pulse Rate 79 05/13/25 11:18 Respiratory Rate 16 05/13/25 11:18 Blood Pressure 140/74 05/13/25 11:18 Pulse Oximetry 98 05/13/25 11:18 Oxygen Delivery Room Air 05/13/25 11:18 Reviewed Lab Data Lab results reviewed: Yes I reviewed the patient's lab results. Labs: Reviewed Critical Care Time Critical Care Time Critical Care Time: No Discharge Plan Discharge Clinical Impression: Conjunctivitis Patient Disposition: Home Condition: Stable Instructions: Conjunctivitis (ED) Additional Instructions: Please call your eye summer child caregiver and make an appointment as soon as possible. You should not be driving until you see your eye summer child caregiver. Use the eyedrops as prescribed Follow-up with primary care provider this week For new or worsening symptoms go directly to the emergency room Patient Language: Wolof Prescriptions: New ofloxacin 0.3 % drops See Rx Instructions EACH EYE .COMPLEX Qty: 5 0RF Rx Instructions: put 1 drop into right eye every 2h while awake x 2 days, then 1 drop 4 times/day days 5 No Action baclofen 10 mg tablet See Rx Instructions .Route .COMPLEX PRN (Reason: muscle pain) Qty: 7 0RF Rx Instructions: 0.5-1 tab bid prn pain multivitamin Tablet 1 tablet PO DAILY cholecalciferol (vitamin D3) [Vitamin D3] 25 mcg (1,000 unit) capsule 1,000 unit PO DAILY Lactobacillus acidophilus 1.5 mg (250 million cell) capsule 100 mmu cells PO DAILY aspirin [Adult Low Dose Aspirin] 81 mg tablet,delayed release (DR/EC) 81 mg PO DAILY acetaminophen 500 mg capsule 1,000 mg PO Q6H PRN (Reason: pain) Qty: 30 0RF ibuprofen 200 mg capsule 200 mg PO Q6H PRN (Reason: fever or pain) Qty: 30 0RF finasteride 5 mg tablet See Rx Instructions .ROUTE .COMPLEX Qty: 90 1RF Dose Instruction: TAKE 1 TABLET BY MOUTH EVERY DAY Rx Instructions: TAKE 1 TABLET BY MOUTH EVERY DAY simvastatin 40 mg tablet See Rx Instructions .ROUTE .COMPLEX Qty: 90 1RF Dose Instruction: TAKE 1 TABLET BY MOUTH EVERY DAY Rx Instructions: TAKE 1 TABLET BY MOUTH EVERY DAY lisinopril-hydrochlorothiazide 10-12.5 mg tablet See Rx Instructions .ROUTE .COMPLEX Qty: 90 1RF Dose Instruction: TAKE 1 TABLET BY MOUTH EVERY DAY Rx Instructions: TAKE 1 TABLET BY MOUTH EVERY DAY sertraline 50 mg tablet See Rx Instructions .ROUTE .COMPLEX Qty: 90 1RF Dose Instruction: TAKE 1 TABLET BY MOUTH EVERY DAY Rx Instructions: TAKE 1 TABLET BY MOUTH EVERY DAY Follow-up/Referrals: Jeremiah Price MD [Primary Care Provider, Family Practice] - 1 Week Clinical Impression: Conjunctivitis
== END 2025-05-13 11:36 | disposition home or self-care (01) ==
PROVIDERS: Emergency Provider Nurse Practitioner; PCP Family Medicine
DX: H10.9 Unspecified conjunctivitis (principal); Z87.891 Personal history of nicotine dependence; F01.50 Vascular dementia, unspecified severity, without behavioral disturbance, psychotic disturbance, mood disturbance, and anxiety; N40.0 Benign prostatic hyperplasia without lower urinary tract symptoms; I25.10 Atherosclerotic heart disease of native coronary artery without angina pectoris; K75.81 Nonalcoholic steatohepatitis (NASH); Z86.73 Personal history of transient ischemic attack (TIA), and cerebral infarction without residual deficits; E78.5 Hyperlipidemia, unspecified; E55.9 Vitamin D deficiency, unspecified; F32.A Depression, unspecified; Z79.82 Long term (current) use of aspirin
CPT/HCPCS: 99213; G0463

== ENCOUNTER 2025-05-27 08:04 | Outpatient (CLI) | payer OTHER, SELFPAY ==
--- OUTSIDE RECORDS SUMMARY | 2006-05-13 09:30 | XMS_ITS | Continuity of Care Document ---
Author Organization [facility] Address [address] [place] [address] Phone Care Team Providers Care Grinder Set Up Operator External Name Role Phone Oralia Ruiz Unavailable Unavailable Advance Directives Directive Yes / No Effective Date File Name No Information Encounters Encounter Description Practice Location Reason(s) For Visit Diagnoses Date Provider Providers Copied on Encounter [facility], [address], [place], [place], [id number], [place] tel:[phone] [facility] No Information [address] , [address], [place], [address], [place]. tel:[phone] Referring Provider: Ervin Pereira MD B, [address], [place], [address]. tel:[phone] Family History Family Member Type Diagnosis Age At Onset No Information Payers Payer name Insurance type Covered alliance party ID Authoriza tion(s) Medicare [facility] [id number] Social History Type Description Quantity Date Captured Comments Sex Male Smoking Status No Information Chief Complaint And Reason For Visit No Information Reason For Referral Reason For Referral No Information History Of Present Illness Encounter Date Complaint History Of Prese nt Illness No Information Functional Status Date Functional Assessmen t No Information Instructions Date Instruction Additional Infor mation No Information Assessments Type Assessment Date No Information Patient Care Teams Name Effective Dates (start - stop) Status Members No Information
--- OUTSIDE RECORDS SUMMARY | 2025-05-27 08:08 | XMS_ITS | Clinical Summary ---
Author Organization [facility] [address] Address [address] [place] [id number] Care Team Providers Care Medical Billing Supervisor Name Role Phone Jeremiah Price MD Primary Care Provider [phone] Allergies No known active allergies Medications finasteride [...] on file Legal Sex Male 1:58 AM [employer] Gender Identity Not on file Sexual Orientation [...] 65+ 2001 Influenza Vaccine (#1) 2025 Insurance [employer] PPO Care Teams Medical Billing Supervisor Relationship Specialty Start Date End Date Jeremiah Price MD PCP - General Family Practice 09/26/23
[2025-05-27 09:17] LABS: Hematocrit 41.2 % (42.0-52.0); Hemoglobin 13.6 g/dL (14.0-18.0); Immature Granulocyte Percent A 0.3 % (0-0.5); Lymphocytes Absolute Auto 1.74 K/mm3 (0.9-3.2); Mean Corpuscular HGB Conc 33.0 g/dl (32-36); Mean Corpuscular Hemoglobin 29.6 pg (26-34); Mean Corpuscular Volume 89.8 fl (80-100); Nucleated Red Blood Cells Absolute Auto 0.000 K/mm3 (0.0-0.012); Nucleated Red Blood Cells Perc 0.0 % (0.0-0.2); Platelet Count Result 194 k/mm3 (150-375); Red Blood Count 4.59 M/mm3 (4.6-6.20); White Blood Count 7.8 K/mm3 (4.5-10.0)
[2025-05-27 09:45] LABS: Alanine Aminotransferase 29 U/L (6-50); Albumin Level 4.2 g/dL (3.5-5.1); Alkaline Phosphatase 97 U/L (38-126); Anion Gap 6 mmol/L (4-12); Aspartate Amino Transferase 43 U/L (17-59); Bilirubin,Total 0.8 mg/dL (0.2-1.3); Blood Urea Nitrogen 19 mg/dL (9-20); Calcium 8.9 mg/dL (8.4-10.2); Carbon Dioxide 29 mmol/L (22-30); Chloride 102 mmol/L (98-107); Cholesterol 133 mg/dL (0-200); Estimated Glomerular Filt Rate > 60; Glucose 90 mg/dL (65-110); HDL Direct 41 mg/dL; Magnesium 2.1 mg/dL (1.6-2.3); Potassium 4.4 mmol/L (3.4-5.0); Sodium 137 mmol/L (137-145); Total Protein 8.0 g/dL (6.3-8.2); Triglycerides 109 mg/dL (<150)
[2025-05-27 10:16] LABS: Thyroid Stimulating Hormone 2.020 uIU/mL (0.465-4.680)
[2025-05-27 10:35] LABS: Vitamin B12 550.0 pg/mL (239-931)
== END 2025-05-27 08:05 | disposition home or self-care (01) ==
LOC: ANHLAB 08:05
PROVIDERS: PCP Family Medicine; Visit Provider Family Medicine
DX: I10 Essential (primary) hypertension (principal); E78.49 Other hyperlipidemia; E55.9 Vitamin D deficiency, unspecified; K75.81 Nonalcoholic steatohepatitis (NASH); I25.10 Atherosclerotic heart disease of native coronary artery without angina pectoris; G47.33 Obstructive sleep apnea (adult) (pediatric); G45.9 Transient cerebral ischemic attack, unspecified; F01.50 Vascular dementia, unspecified severity, without behavioral disturbance, psychotic disturbance, mood disturbance, and anxiety; F32.5 Major depressive disorder, single episode, in full remission; E66.9 Obesity, unspecified; Z68.28 Body mass index [BMI] 28.0-28.9, adult
CPT/HCPCS: 36415; 80053; 80061; 82306; 82607; 83735; 84443; 85025